=== PATIENT | female | born 1995 | race Caucasian/White ===

== ENCOUNTER 2016-07-13 07:07 | Emergency (ER) | payer BC ==
[2016-07-13 07:22] VITALS: BP 117/76
--- NOTE | 2016-07-13 14:51 | UC ---
Frankie Lema Anna, scribed for Melodie Carter DO on 07/13/16 at 0755 . Complaint Female HPI - HPI Summary HPI Summary: Patient is a 21 y/o female coming to [facility] presenting with dysuria that began four days ago. Per triage notes, the severity of the pain is described as 3/10. Her urine has additionally been malodorous. She has been drinking more water than normal and has noticed an increase in the frequency of urination. She has additionally had back pain and has felt feverish. She has a skin rash that began yesterday and resolved after washing off, which she attributes to an allergic reaction. She denies abd pain, sore throat, eye drainage, SOB, coughing , or MCMAHAN. She was recently taken off Bactrim, which she normally takes for 14 days. Her current symptoms do not feel similar to her previous kidney infections. Her history is significant for bilateral duplex kidneys, reimplantation of ureters, reshaping of ureters, and recurrent urinary infections, which she experiences about once a month. She was recently taking off her pplx abx for a trial. LNMP was 06/14/2016. Patient medications were reviewed this visit. - History Of Current Complaint Stated Complaint: URINARY ISSUE Hx Obtained From: Patient Hx Last Menstrual Period: 06/14/16 ?: No Onset/Duration: Gradual Onset, Lasting Days, Still Present Timing: Lasting Days Severity Initially: Moderate Severity Currently: Moderate Pain Intensity: 3 Pain Scale Used: 0-10 Numeric Character: Dull, Burning Aggravating Factor(s): Urination Alleviating Factor(s): Nothing Associated Signs And Symptoms: Positive: Fever, Back Pain Related Hx: Similar Episode/Dx as: - UTI, 12x/year - Allergies/Home Medications Allergies/Adverse Reactions: Allergies Allergy/AdvReac Type Severity Reaction Status Date / Time gluten Allergy celiac's Uncoded 06/06/15 07:41 PMH/Surg Hx/FS Hx/Imm Hx - Additional Past Medical History Additional PMH: In addition to listed below: recurrent UTIs, panic disorder, Genital herpes complex 1 Respiratory History Of: Reports: Asthma - CHILDHOOD ASTHMA STATES NO PROBLEMS NOW GI/ History Of: Reports: Kidney Stones - HISTORY Psychological History Of: Reports: Anxiety - NO MEDICATION FOR, Depression - NO MEDICATION FOR - Surgical History Surgical History: Yes Surgery Procedure, Year, and Place: URETER REIMPLANTATION- [facility]- 1992. 2006-RESHAPING OF THE URETER OPENING-[facility]. urethral dialation at [facility] [place] - Family History Known Family History: Positive: Other - breast CA, pancreatic CA, colon CA Negative: Cardiac Disease, Hypertension, Diabetes - Social History Alcohol Use: Rare Substance Use Type: None Smoking Status (MU): Never Smoked Tobacco Review of Systems Constitutional: Fever Skin: Rash - resolved Eyes: Negative ENT: Negative Respiratory: Negative Cardiovascular: Negative Gastrointestinal: Negative Genitourinary: Dysuria, Frequency, Other - malodorous urine Motor: Negative Neurovascular: Negative Musculoskeletal: Myalgia - back pain Neurological: Negative Psychological: Negative All Other Systems Reviewed And Are Negative: Yes Physical Exam Triage Information Reviewed: Yes Appearance: Well-Appearing, No Pain Distress, Well-Nourished Vital Signs: Initial Vital Signs Temp 98.6 F 07/13/16 07:16 Pulse 67 07/13/16 07:16 Resp 17 07/13/16 07:16 BP 117/76 07/13/16 07:16 Pulse Ox 100 07/13/16 07:16 Vital Signs Reviewed: Yes Eyes: Positive: Conjunctiva Clear. Negative: Discharge ENT: Positive: Hearing grossly normal. Negative: Muffled/hoarse voice Neck exam: Normal Neck: Positive: Supple Respiratory: Positive: Lungs clear, Normal breath sounds, No respiratory distress, No accessory muscle use Cardiovascular: Positive: RRR, No Murmur Abdomen Description: Positive: Soft, CVA Tenderness (R), Other: - suprapubic tenderness. Negative: Distended, Guarding Bowel Sounds: Positive: Present Musculoskeletal Exam: Normal Neurological: Positive: Alert, Muscle Tone Normal Psychological Exam: Normal Psychological: Positive: Age Appropriate Behavior Skin Exam: Other - warm, dry, normal color Complaint Female Dx - Differential Dx/Diagnosis Differential Diagnosis/HQI/PQRI: Renal Colic, Urinary Tract Infection Provider Diagnoses: URINARY TRACT INFECTION Discharge - Discharge Plan Condition: Stable Disposition: HOME Prescriptions: Phenazopyridine TAB* [Pyridium TAB*] 200 mdi PO TID PRN #6 tab PRN Reason: Pain Sulfamethox/Trimethoprim DS* [Bactrim DS 800/160 TAB*] 1 tab PO BID #28 tab Patient Education Materials: Sulfamethoxazole/Trimethoprim (By mouth), Urinary Tract Infection in Women (ED) Referrals: Haley Estes NP [Primary Care Provider] - 3 Days (FOLLOW UP WITHIN 2 DAYS IF YOUR SYMPTOMS ARE GETTING WORSE. FOLLOW UP SOONER IF YOU ARE DEVELOPING NEW SYMPTOMS SUCH FEVER, CHILLS, CONFUSION,VOMITING OR WORSENING FLANK PAIN. FOLLOW UP IN 3-4 DAYS IF NOT IMPROVING EXPECTED. ) Additional Instructions: ANTIBIOTIC THERAPY: You have been given an antibiotic prescription. It's important that you take all the medication, unless instructed otherwise by your physician. Failure to complete the entire course can result in relapse of your condition. Common side effects of antibiotics include nausea, intestinal cramping, or diarrhea. Women may develop vaginal yeast infections, and babies can get yeast (thrush) in the mouth following the use of antibiotics. Contact your physician if you develop significant side effects from this medication. Allergy to this antibiotic can result in hives, wheezing, faintness, or itching. If symptoms of allergy occur, stop the medication and call the doctor. ANYTIME YOU TAKE AN ANTIBIOTIC, IT IS IMPORTANT TO REPLENISH THE BODY'D SUPPLY OF "GOOD BACTERIA." YOU CAN GET GOOD BACTERIA FROM HIGH QUALITY CULTURED FOODS SUCH LOCAL YOGURT, SOUR KRAUT, PHUC PARAMJIT, NATURALLY FERMENTED PICKLES AND PROBIOTIC DRINKS. YOU CAN ALSO GET GOOD BACTERIA FROM A PROBIOTIC SUPPLEMENT. The documentation as recorded by the Frankie hinkle Anna accurately reflects the service I personally performed and the decisions made by , Melodie Carter DO.
== END 2016-07-13 08:22 | disposition home or self-care (01) ==
LOC: UCEAST 07:07
DX: N39.0 Urinary tract infection, site not specified (principal); Z32.02 Encounter for pregnancy test, result negative; Z87.440 Personal history of urinary (tract) infections; Z87.442 Personal history of urinary calculi; F41.9 Anxiety disorder, unspecified; F32.9 Major depressive disorder, single episode, unspecified
CPT/HCPCS: 81003; 84702; 87077; 87086; 87186; 99212; G0463

== ENCOUNTER 2016-07-27 15:51 | Emergency (ER) | payer BC ==
[2016-07-27 16:38] VITALS: BP 109/70
--- NOTE | 2016-07-27 17:03 | UC ---
Skin Complaint HPI - HPI Summary HPI Summary: Pain, redness in L breast starting 2 evenings ago. No or , denies fever or vomiting. Bound breasts the week before, but not in the days leading up to the redness. No recent injury, piercings, or tattoos. - History of Current Complaint Chief Complaint: UCSkin Time Seen by Provider: 07/27/16 16:45 Stated Complaint: SKIN COMPLAINT Hx Obtained From: Patient Hx Last Menstrual Period: 07/18/16 ?: No Onset/Duration: Gradual Onset, Lasting Days Timing: Constant Onset Severity: Mild Current Severity: Moderate Location: Discrete Character: Redness, Painful Aggravating: Clothing, Touch Alleviating: Nothing Associated Signs & Symptoms: Positive: Chest Pain - (L breast), Tenderness - Allergy/Home Medications Allergies/Adverse Reactions: Allergies Allergy/AdvReac Type Severity Reaction Status Date / Time Sulfa Antibiotics Allergy Severe GI Upset Verified 07/27/16 16:38 gluten Allergy celiac's Uncoded 07/27/16 16:38 Review of Systems Constitutional: Negative Skin: Other - L breast redness Eyes: Negative ENT: Negative Respiratory: Negative Cardiovascular: Negative Gastrointestinal: Negative Genitourinary: Negative Motor: Negative Neurovascular: Negative Musculoskeletal: Negative Neurological: Negative Psychological: Negative All Other Systems Reviewed And Are Negative: Yes PMH/Surg Hx/FS Hx/Imm Hx - Surgical History Surgical History: Yes Surgery Procedure, Year, and Place: URETER REIMPLANTATION- [facility]- 1992. 2005-RESHAPING OF THE URETER OPENING-[facility]. urethral dialation at [facility] [place] - Family History Known Family History: Positive: Other - breast CA, pancreatic CA, colon CA Negative: Cardiac Disease, Hypertension, Diabetes - Social History Alcohol Use: None Substance Use Type: None Smoking Status (MU): Never Smoked Tobacco Physical Exam Triage Information Reviewed: Yes Appearance: Well-Appearing, No Pain Distress, Well-Nourished Vital Signs: Initial Vital Signs Temp 98.8 F 07/27/16 16:35 Pulse 98 07/27/16 16:35 Resp 16 07/27/16 16:35 BP 109/70 07/27/16 16:35 Pulse Ox 100 07/27/16 16:35 Vital Signs Reviewed: Yes Eye Exam: Normal Eyes: Positive: Conjunctiva Clear ENT Exam: Normal ENT: Positive: Normal ENT inspection, Hearing grossly normal, Pharynx normal, TMs normal Dental Exam: Normal Neck exam: Normal Respiratory Exam: Normal Respiratory: Positive: Chest non-tender, Lungs clear, Normal breath sounds, No respiratory distress, No accessory muscle use Cardiovascular Exam: Normal Cardiovascular: Positive: RRR, No Murmur Musculoskeletal Exam: Normal Neurological Exam: Normal Neurological: Positive: Alert Psychological Exam: Normal Skin Exam: Other - erythema central on L breast, no abscess formation or nipple drainage Course/Dx - Diagnoses Provider Diagnoses: Nonlactational L mastitis Discharge - Discharge Plan Condition: Stable Disposition: HOME Prescriptions: Cephalexin CAP* [Keflex CAP*] 500 mg PO QID #28 cap Patient Education Materials: Mastitis (ED) Referrals: Haley Estes NP [Primary Care Provider] - Additional Instructions: If you don't start to have clear and steady improvement within 48 hours, please see your primary care provider for a recheck. If you are markedly worsening or develop fever, please go to the emergency department or see your primary care office.
== END 2016-07-27 17:02 | disposition home or self-care (01) ==
LOC: UCEAST 15:51
DX: N61.0 Mastitis without abscess (principal); Z88.2 Allergy status to sulfonamides
CPT/HCPCS: 99212; G0463

== ENCOUNTER 2016-08-14 09:05 | Emergency (ER) | payer BC ==
[2016-08-14 11:19] VITALS: BP 108/68
--- NOTE | 2016-08-14 12:01 | RAD ---
CLINICAL HISTORY: Left breast redness and swelling , nipple inversion COMPARISON: None TECHNIQUE: Multiple radial and antiradial ultrasound images were obtained of the left breast using grayscale and color Doppler imaging. FINDINGS: BACKGROUND OF BREAST ECHOTEXTURE: Homogeneous-glandular MASSES: There are no suspicious nodules or masses. ARCHITECTURE: There is no architectural distortion. CALCIFICATIONS: There is no shadowing. SPECIAL CASES: None. OTHER FINDINGS: There is a benign-appearing lymph node in the left axilla. There is no lymphadenopathy by size criteria ASSESSMENT: NO LOCULATED FLUID COLLECTION TO SUGGEST ABSCESS. NO SPECIFIC SONOGRAPHIC EVIDENCE OF MALIGNANCY. RECOMMENDATION: RECOMMEND ROUTINE YEARLY SCREENING MAMMOGRAPHY AT THE APPROPRIATE AGE ACCORDING TO ACR GUIDELINES. A NEGATIVE REPORT SHOULD NOT PRECLUDE OR DELAY THE EVALUATION OF A CLINICALLY SUSPICIOUS ABNORMALITY ACR BIRADS Category 2: Benign
--- NOTE | 2016-08-14 14:12 | UC ---
Sylvester Lema Auryana, scribed for Melodie Carter DO on 08/14/16 at 1019 . Breast Complaint - HPI Summary HPI Summary: 21 year old female presents with left breast erthyema and swelling starting this morning. She denies any fever, chills, sweats, chest pain, cough, SOB, nausea, vomiting, or any headaches. She denies any pain or any discharge. She was seen here 2 weeks ago with previous diagnosis of mastitis - ABX given and saw mild improvement at day 4 with resolution after full ABX course. Reports using warm compresses with previous episode. PMHx is significant for recurrent U.T.I.s. SHx is not significant for tobacco use. - History of Current Complaint Hx Obtained From: Patient Breast Chief Complaint: Dimpling - due to swelling, Inflammation, Other: - erythema Onset/Duration: Started Days Ago - this morning, Still Present Timing: Constant Breast Pain Aggravating Factors: Nothing - no pain Breast Pain Alleviating Factors: Nothing - no pain Breast Associated Signs/Symptoms: Redness Breast Related History: Similar Episode as: - SEE HPI - Allergy/Home Medications Allergies/Adverse Reactions: Allergies Allergy/AdvReac Type Severity Reaction Status Date / Time Sulfa Antibiotics Allergy Severe GI Upset Verified 08/14/16 09:15 gluten Allergy celiac's Uncoded 08/14/16 09:15 PMH/Surg Hx/FS Hx/Imm Hx - Additional Past Medical History Additional PMH: h/o recurrent uti d/t anatomical anomaly - Surgical History Surgical History: Yes Surgery Procedure, Year, and Place: URETER REIMPLANTATION- [facility]- 1992. 2005-RESHAPING OF THE URETER OPENING-[facility]. [place] dial[place] [facility] [place] - Family History Known Family History: Positive: Other - breast CA, pancreatic CA, colon CA Negative: Cardiac Disease, Hypertension, Diabetes - Social History Lives: With Family Alcohol Use: None Substance Use Type: None Smoking Status (MU): Never Smoked Tobacco Review of Systems Constitutional: Negative Skin: Other - left breast swelling and erythema Eyes: Negative ENT: Negative Respiratory: Negative Cardiovascular: Negative Gastrointestinal: Negative Genitourinary: Negative Motor: Negative Neurovascular: Negative Musculoskeletal: Negative Neurological: Negative Psychological: Negative All Other Systems Reviewed And Are Negative: Yes Physical Exam Triage Information Reviewed: Yes Appearance: Well-Appearing, No Pain Distress, Well-Nourished Vital Signs: Initial Vital Signs Temp 99.9 F 08/14/16 09:15 Pulse 77 08/14/16 09:15 Resp 16 08/14/16 09:15 BP 98/66 08/14/16 09:15 Pulse Ox 100 08/14/16 09:15 Vital Signs Reviewed: Yes Eyes: Positive: Conjunctiva Clear. Negative: Discharge ENT: Positive: Hearing grossly normal. Negative: Muffled/hoarse voice Neck exam: Normal Neck: Positive: Supple Respiratory: Positive: Lungs clear, Normal breath sounds, No respiratory distress, No accessory muscle use Cardiovascular: Positive: RRR, No Murmur Musculoskeletal Exam: Normal Neurological: Positive: Alert, Muscle Tone Normal Psychological Exam: Normal Psychological: Positive: Age Appropriate Behavior Skin Exam: Normal, Other - warm, dry, color normal Skin: Positive: Other - 13 cm x 15 cm erythematous, and mildly indurated area over the left breast Some dimpling of the nipple. Breast Pain Course/Dx - Course Course Of Treatment: ASSESSMENT: NO LOCULATED FLUID COLLECTION TO SUGGEST ABSCESS. NO SPECIFIC SONOGRAPHIC. EVIDENCE OF MALIGNANCY. - Differential Diagnoses Differential Diagnosis/HQI/PQRI: Breast Abscess, Mastitis, Other: - cellulitis - Diagnoses Provider Diagnoses: Mastitis Discharge - Discharge Plan Condition: Stable Disposition: HOME Prescriptions: Amoxicillin/Clavulanate TAB* [Augmentin TAB 875*] 875 mg PO BID #20 tab Patient Education Materials: Mastitis (ED), Amoxicillin/Clavulanate Potassium ( By mouth), Probiotic (By mouth) Referrals: Randi Naidu MD [Medical Doctor] - 1 Day (PLEASE CALL FOR AN APPOINTMENT ) Additional Instructions: ANYTIME YOU TAKE AN ANTIBIOTIC, IT IS IMPORTANT TO REPLENISH THE BODY'D SUPPLY OF "GOOD BACTERIA." YOU CAN GET GOOD BACTERIA FROM HIGH QUALITY CULTURED FOODS SUCH LOCAL YOGURT, SOUR KRAUT, PHCU PARAMJIT, NATURALLY FERMENTED PICKLES AND PROBIOTIC DRINKS. YOU CAN ALSO GET GOOD BACTERIA FROM A PROBIOTIC SUPPLEMENT. YOU WOULD LIKELY BENEFIT FROM OSTEOPATHIC TREATMENT. WE RECOMMEND THAT YOU FIND AN OSTEOPATHIC PHYSICIAN IN YOUR AREA WHO FOCUSES EXCLUSIVELY ON OSTEOPATHIC MANIPULATIVE MEDICINE WITH EXPERTISE IN MYOFACIAL, LYMPHATIC, VISCERAL AND INTEROSSEOUS WORK. IF NOT OSTEOPATHY, YOU COULD SEEK HELP FROM AN ACCUPUNCTURITST OR ANY OTHER TYPE OF LINE MAINTAINER SECTION WHO DOES LYMPHATIC DRAINAGE. The documentation as recorded by the Sylvester hinkle Auryana accurately reflects the service I personally performed and the decisions made by me, Melodie Carter DO.
== END 2016-08-14 12:08 | disposition home or self-care (01) ==
LOC: UCEAST 09:05
DX: N61.0 Mastitis without abscess (principal); Z88.2 Allergy status to sulfonamides
CPT/HCPCS: 84702; 99212; G0463

== ENCOUNTER 2016-08-31 15:24 | Emergency (ER) | payer BC ==
--- NOTE | 2016-08-31 18:14 | UC ---
Urmila Lema Alfonso, scribed for Waqar Evans MD on 08/31/16 at 1655 . Complaint Female HPI - HPI Summary HPI Summary: This patient is a 21 year old F presenting to [facility] with a chief complaint of UTI symptoms since yesterday. Pt rates the burning pain 5/10 in severity. Symptoms aggravated and alleviated by nothing. Pt reports dysuria, increased urgency, increased frequency, nausea, and right flank pain. She denies dyspnea. Pt reports a recent fall. PMHx of recurrent UTIs. Patient medications reviewed this visit. - History Of Current Complaint Chief Complaint: UCGU Stated Complaint: POSS UTI Time Seen by Provider: 08/31/16 16:37 Hx Obtained From: Patient Hx Last Menstrual Period: 08/21/16 Onset/Duration: Sudden Onset, Lasting Days - Since yesterday, Still Present Timing: Constant Severity Initially: Moderate Severity Currently: Moderate Pain Intensity: 7 Pain Scale Used: 0-10 Numeric Character: Burning Aggravating Factor(s): Nothing Alleviating Factor(s): Nothing Associated Signs And Symptoms: Positive: Nausea - Allergies/Home Medications Allergies/Adverse Reactions: Allergies Allergy/AdvReac Type Severity Reaction Status Date / Time Sulfa Antibiotics Allergy Severe GI Upset Verified 08/14/16 09:15 gluten Allergy celiac's Uncoded 08/14/16 09:15 Home Medications: Home Medications Acyclovir* [Zovirax CAP*] 1,000 mg PO PRN 08/31/16 [History] PMH/Surg Hx/FS Hx/Imm Hx - Surgical History Surgical History: Yes Surgery Procedure, Year, and Place: URETER REIMPLANTATION- [facility]- 1992. 2005-RESHAPING OF THE URETER OPENING-[facility]. urethral dialation at [facility] [place] - Family History Known Family History: Positive: Other - breast CA, pancreatic CA, colon CA Negative: Cardiac Disease, Hypertension, Diabetes - Social History Alcohol Use: None Substance Use Type: None Smoking Status (MU): Never Smoked Tobacco Review of Systems Respiratory: Other - Negative dyspnea Gastrointestinal: Nausea, Other - Positive right flank pain. Genitourinary: Other - Positive "UTI symptoms," dysuria, increased urgency, increased frequency. All Other Systems Reviewed And Are Negative: Yes Physical Exam Triage Information Reviewed: Yes Appearance: Well-Appearing, No Pain Distress Vital Signs: Initial Vital Signs Temp 97.8 F 08/31/16 15:47 Pulse 87 08/31/16 15:47 Resp 18 08/31/16 15:47 Pulse Ox 100 08/31/16 15:47 Vital Signs Reviewed: Yes Eyes: Positive: Other: - EOMI and SHAREE ENT: Positive: Normal ENT inspection Neck: Positive: Supple, Nontender Respiratory: Positive: Chest non-tender, Lungs clear, Normal breath sounds Cardiovascular: Positive: RRR Abdomen Description: Positive: Soft, Other: - Mild right flank and suprapubic tenderness. Bowel Sounds: Positive: Present Musculoskeletal: Positive: Strength Intact, ROM Intact Neurological: Positive: Alert Psychological: Positive: Age Appropriate Behavior Skin Exam: Normal Complaint Female Dx - Course Course Of Treatment: PATIENT SEES AN UROLOGIST IN [place]. SHE ALREADY HAS ANTIBIOTICS AND ZOFRAN AT HOME. URINE CULTURE SENT. - Differential Dx/Diagnosis Provider Diagnoses: UTI Discharge - Discharge Plan Condition: Stable Disposition: HOME Patient Education Materials: Urinary Tract Infection in Women (ED) Referrals: Haley Estes NP [Primary Care Provider] - Additional Instructions: FOLLOW UP WITH YOUR DOCTOR. YOUR URINE CULTURE RESULTS ARE PENDING. GET RECHECKED FOR ANY WORSENING OF YOUR CONDITION OR QUESTIONS OR CONCERNS. The documentation as recorded by the Urmila hinkle Alfonso accurately reflects the service I personally performed and the decisions made by me, Waqar Evans MD.
[2016-09-01 12:28] LABS: Urine Bacteria Absent (Absent); Urine Bilirubin Negative (Negative); Urine Glucose Negative (Negative); Urine Nitrite Negative (Negative)
== END 2016-08-31 17:02 | disposition home or self-care (01) ==
LOC: UCEAST 15:24
DX: N39.0 Urinary tract infection, site not specified (principal)
CPT/HCPCS: 81003; 81015; 84702; 87077; 87086; 87186; 99211; G0463

== ENCOUNTER 2016-10-13 17:44 | Emergency (ER) | payer BC ==
[2016-10-13 17:58] VITALS: BP 104/69
--- NOTE | 2016-10-13 18:09 | UC ---
Complaint Female HPI - HPI Summary HPI Summary: Pt presents to urgent care with request for urine culture. 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 Rodríguez) in [place]. Pt frequently gets UTIs and has a standing prescription for Macrobid for when sx develop. Pt has previously be instructed not to start abx until gets culture. Pt states has progressive sx x 2 days. States started pyridium. 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 Pt reports tactile temp. No fever, chills, rash. mild right low back pain. no hematuria. + frequency. + dysuria. No nausea, vomiting. + staying hydrated. Pt has not called business project analyst. Pt has taken APAP Pt's medications reviewed this visit Pt with bottle of Macrobid with her - History Of Current Complaint Chief Complaint: UCGU Stated Complaint: BURNING URINATION Time Seen by Provider: 10/13/16 18:06 Hx Obtained From: Patient Hx Last Menstrual Period: 10/13/16 ?: No Onset/Duration: Gradual Onset Timing: Constant Severity Initially: Mild Severity Currently: Moderate Pain Intensity: 6 Character: Burning Aggravating Factor(s): Urination Alleviating Factor(s): Meds - pyridium, APAP little improvement Associated Signs And Symptoms: Positive: Fever - tactile, Back Pain - low back - Allergies/Home Medications Allergies/Adverse Reactions: Allergies Allergy/AdvReac Type Severity Reaction Status Date / Time Sulfa Antibiotics Allergy Severe GI Upset Verified 08/14/16 09:15 gluten Allergy celiac's Uncoded 08/14/16 09:15 PMH/Surg Hx/FS Hx/Imm Hx Previously Healthy: Yes GI/ History: Other Other GI/ History: redundant kidney, frequent UTI - Surgical History Surgical History: Yes Surgery Procedure, Year, and Place: URETER REIMPLANTATION- [facility]- 1992. 2005-RESHAPING OF THE URETER OPENING-[facility]. 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 Alcohol Use: None Substance Use Type: None Smoking Status (MU): Never Smoked Tobacco Review of Systems Constitutional: Fever - tactile Skin: Negative Eyes: Negative ENT: Negative Respiratory: Negative Cardiovascular: Negative Gastrointestinal: Negative Genitourinary: Dysuria, Frequency, Urgency Motor: Negative Neurovascular: Negative Musculoskeletal: Negative Neurological: Negative Psychological: Negative All Other Systems Reviewed And Are Negative: Yes Physical Exam Triage Information Reviewed: Yes Appearance: Well-Appearing Vital Signs: Initial Vital Signs Temp 97.8 F 10/13/16 17:53 Pulse 77 10/13/16 17:53 Resp 18 10/13/16 17:53 BP 104/69 10/13/16 17:53 Pulse Ox 100 10/13/16 17:53 Vital Signs Reviewed: Yes Eye Exam: Normal Eyes: Positive: Conjunctiva Clear ENT: Positive: Hearing grossly normal Neck: Positive: Supple, Nontender Respiratory: Positive: Normal breath sounds, No respiratory distress, No accessory muscle use Cardiovascular Exam: Normal Cardiovascular: Positive: RRR, No Murmur Abdomen Description: Positive: Soft. Negative: Nontender - mild suprapubic no guarding no CVA b/l, CVA Tenderness (R), CVA Tenderness (L) Bowel Sounds: Positive: Present Musculoskeletal Exam: Normal Neurological Exam: Normal Neurological: Positive: Alert Psychological Exam: Normal Psychological: Positive: Normal Response To Family Skin Exam: Normal Complaint Female Dx - Course Course Of Treatment: Pt presents with urinary frequency, urgency increasing x 2 days. Pt with recurrent UTI. Pt started pyridium. today started Macrobid. Pt here for urine culture per business project analyst in [place]. Pt declined work note. APAP. hydrated. will call nephrology tomorrow. return precautions discussed - Differential Dx/Diagnosis Provider Diagnoses: UTI Discharge - Discharge Plan Condition: Stable Disposition: HOME Patient Education Materials: Urinary Tract Infection in Women (ED) Referrals: Haley Estes NP [Primary Care Provider] - Additional Instructions: - Stay well hydrated. Drink plenty of non-caffinated, non-carbonated beverages - Take pyridium, Macrobid as prescribed by your kidney specialist - Okay to take Tylenol every 6 Horus as needed for pain - Contact your renal specialist tomorrow to schedule a follow-up appointment and discuss today's visit - your urine has been cultured, of you need a different antibiotic you will receive a call from our patient care team
== END 2016-10-13 18:27 | disposition home or self-care (01) ==
LOC: UCEAST 17:44
DX: N39.0 Urinary tract infection, site not specified (principal); Z32.02 Encounter for pregnancy test, result negative; Z87.440 Personal history of urinary (tract) infections; Z88.2 Allergy status to sulfonamides
CPT/HCPCS: 81003; 84702; 87077; 87086; 87186; 99211; G0463

== ENCOUNTER 2017-01-06 18:07 | Emergency (ER) | payer BC ==
[2017-01-06 20:00] VITALS: BP 116/70
[2017-01-06] MEDS ORDERED: Ciprofloxacin TAB* 500 MG PO ONE (20:18)
--- NOTE | 2017-01-06 20:25 | UC ---
Complaint Female HPI - HPI Summary HPI Summary: Pt has long hx of recurrent UTIs, recent ones dxed in August and Sep of this year. Was recently diagnosed with urinary reflux by a urologist. Has had urinary pain, frequency, and bladder pressure starting about 3 days ago. Denies fever and back pain, but does have nausea. - History Of Current Complaint Hx Obtained From: Patient Hx Last Menstrual Period: December 27 ?: No Onset/Duration: Gradual Onset, Lasting Days Timing: Constant Severity Initially: Mild Severity Currently: Moderate Character: Burning Aggravating Factor(s): Urination Associated Signs And Symptoms: Negative: Fever, Back Pain, Vaginal Bleeding/ Discharge <Hannah Galeano - Last Filed: 01/06/17 20:20> <Esmer Bray - Last Filed: 01/07/17 10:11> - History Of Current Complaint Chief Complaint: UCGU Stated Complaint: POSS UTI Time Seen by Provider: 01/06/17 19:47 - Allergies/Home Medications Allergies/Adverse Reactions: Allergies Allergy/AdvReac Type Severity Reaction Status Date / Time Sulfa Antibiotics Allergy Severe GI Upset Verified 01/06/17 20:00 gluten Allergy celiac's Uncoded 01/06/17 20:00 Home Medications: Home Medications Methenamine Hippurate [Hiprex] 1 gm PO DAILY 01/06/17 [History Confirmed ] PMH/Surg Hx/FS Hx/Imm Hx Previously Healthy: Yes - Surgical History Surgical History: Yes Surgery Procedure, Year, and Place: URETER REIMPLANTATION- [facility]- 1992. 2005-RESHAPING OF THE URETER OPENING-[facility]. urethral dialation at [facility] – [place], [place] - Family History Known Family History: Positive: Other - breast CA, pancreatic CA, colon CA Negative: Cardiac Disease, Hypertension, Diabetes - Social History Occupation: Employed Full-time Alcohol Use: None Substance Use Type: None Smoking Status (MU): Never Smoked Tobacco <Hannah Galeano - Last Filed: 01/06/17 20:20> Review of Systems Constitutional: Negative Skin: Negative Eyes: Negative ENT: Negative Respiratory: Negative Cardiovascular: Negative Gastrointestinal: Negative Genitourinary: Dysuria, Frequency, Urgency Motor: Negative Neurovascular: Negative Musculoskeletal: Negative Neurological: Negative Psychological: Negative Is Patient Immunocompromised?: No All Other Systems Reviewed And Are Negative: Yes <Hannah Galeano - Last Filed: 01/06/17 20:20> Physical Exam Triage Information Reviewed: Yes Appearance: Well-Appearing, No Pain Distress, Well-Nourished Vital Signs: Initial Vital Signs Temp 99.4 F 01/06/17 19:57 Pulse 82 01/06/17 19:57 Resp 18 01/06/17 19:57 BP 116/70 01/06/17 19:57 Pulse Ox 100 01/06/17 19:57 Vital Signs Reviewed: Yes Eye Exam: Normal Eyes: Positive: Conjunctiva Clear ENT Exam: Normal ENT: Positive: Normal ENT inspection, Hearing grossly normal, Pharynx normal, TMs normal Dental Exam: Normal Neck exam: Normal Neck: Positive: Supple, Nontender, No Lymphadenopathy Respiratory Exam: Normal Respiratory: Positive: Chest non-tender, Lungs clear, Normal breath sounds, No respiratory distress, No accessory muscle use Cardiovascular Exam: Normal Cardiovascular: Positive: RRR Abdomen Description: Positive: CVA Tenderness (R), CVA Tenderness (L) - L>R Musculoskeletal Exam: Normal Neurological Exam: Normal Neurological: Positive: Alert Psychological Exam: Normal Skin Exam: Normal <Hannah Galeano - Last Filed: 01/06/17 20:20> Vital Signs: Initial Vital Signs Temp 99.4 F 01/06/17 19:57 Pulse 82 01/06/17 19:57 Resp 18 01/06/17 19:57 BP 116/70 01/06/17 19:57 Pulse Ox 100 01/06/17 19:57 <Esmer Bray - Last Filed: 01/07/17 10:11> Complaint Female Dx - Differential Dx/Diagnosis Provider Diagnoses: UTI <Hannah Galeano - Last Filed: 01/06/17 20:20> Discharge <Hannah Galeano - Last Filed: 01/06/17 20:20> <Esmer Bray - Last Filed: 01/07/17 10:11> - Discharge Plan Condition: Stable Disposition: HOME Prescriptions: Ciprofloxacin TAB* [Cipro 500 MG TAB*] 500 mg PO BID #10 tab Patient Education Materials: Urinary Tract Infection in Women (ED) Referrals: Haley Estes NP [Primary Care Provider] - Additional Instructions: Follow up with your urologist as planned. If you are not completely symptom- free by the time you finish your antibiotics, get seen again. Attestation Statement User Type: Provider - I was available for consult. This patient was seen by the GISELA. The patient was not presented to, seen by, or examined by me. -Ely <Esmer Bray - Last Filed: 01/07/17 10:11>
== END 2017-01-06 20:27 | disposition home or self-care (01) ==
LOC: UCEAST 18:07
DX: N39.0 Urinary tract infection, site not specified (principal); Z87.440 Personal history of urinary (tract) infections
CPT/HCPCS: 81003; 81025; 87086; 99212; A9270-GY; G0463

== ENCOUNTER 2017-10-11 08:09 | Emergency (ER) | payer BC ==
[2017-10-11 08:18] VITALS: BP 111/74
--- NOTE | 2017-10-11 08:19 | UC ---
Complaint Female HPI - HPI Summary HPI Summary: 22 yo female presents with urinary burning and frequency since yesterday morning that got progressively worse as the day continued. This morning does endorse some left flank pain. She tells me that she has an extensive history of UTIs and is on chronic macrodantin for this and is followed by Urology. Also a history of multiple ureter surgeries. Currently denies fever, chills, abdominal pain, n/v/d/c, or hematuria. No hx of kidney stone. - History Of Current Complaint Chief Complaint: UCGU Stated Complaint: URINARY COMPLAINT Time Seen by Provider: 10/11/17 08:13 Hx Obtained From: Patient Hx Last Menstrual Period: December 27 Onset/Duration: Sudden Onset Timing: Constant Severity Initially: Mild Severity Currently: Mild Pain Intensity: 3 Pain Scale Used: 0-10 Numeric - Allergies/Home Medications Allergies/Adverse Reactions: Allergies Allergy/AdvReac Type Severity Reaction Status Date / Time Sulfa (Sulfonamide Allergy GI Upset Verified 10/11/17 08:20 Antibiotics) gluten Allergy celiac's Uncoded 10/11/17 08:20 methanamine Allergy See Comment Uncoded 10/11/17 08:20 Home Medications: Home Medications Estradiol/Levonorgestrel [Climara Pro Patch] 1 each TD 10/11/17 [History] PMH/Surg Hx/FS Hx/Imm Hx - Additional Past Medical History Additional PMH: Chronic UTIs - Surgical History Surgical History: Yes Surgery Procedure, Year, and Place: URETER REIMPLANTATION- [facility]- 1992. 2005-RESHAPING OF THE URETER OPENING-[facility]. [place] [facility] [place] - Family History Known Family History: Positive: Other - breast CA, pancreatic CA, colon CA Negative: Cardiac Disease, Hypertension, Diabetes - Social History Occupation: Employed Full-time Lives: With Family Alcohol Use: None Substance Use Type: None Smoking Status (MU): Never Smoked Tobacco Review of Systems Constitutional: Negative Skin: Negative Respiratory: Negative Cardiovascular: Negative Gastrointestinal: Negative Genitourinary: Dysuria, Urgency Neurovascular: Negative Neurological: Negative Psychological: Negative All Other Systems Reviewed And Are Negative: Yes Physical Exam - Summary Physical Exam Summary: GENERAL: NAD. WDWN. No pain distress. SKIN: No rashes, sores, lesions, or open wounds. NECK: Supple. Nontender. No lymphadenopathy. CHEST: CTAB. No r/r/w. No accessory muscle use. Breathing comfortably and in no distress. CV: RRR. Without m/r/g. Pulses intact. Cap refill <2seconds ABDOMEN: Mild left CVA tenderness. Soft. NTTP. No distention or guarding. Bowel sounds present NEURO: Alert. CN II-XII grossly intact. PSYCH: Age appropriate behavior. Triage Information Reviewed: Yes Vital Signs: Vital Signs: Temp Pulse Resp BP Pulse Ox 97.7 F 83 18 111/74 100 10/11/17 08:15 10/11/17 08:15 10/11/17 08:15 10/11/17 08:15 10/11/17 08:15 Vital Signs Reviewed: Yes Complaint Female Dx - Course Course Of Treatment: UA unreliable as pt took AZO this morning for her symptoms. Will treat symptomatically and send urine for culture. - Differential Dx/Diagnosis Provider Diagnoses: UTI Discharge - Sign-Out/Discharge Documenting (check all that apply): Patient Departure All imaging exams completed and their final reports reviewed: No Studies - Discharge Plan Condition: Stable Disposition: HOME Prescriptions: Ciprofloxacin TAB* [Cipro 500 MG TAB*] 500 mg PO BID #14 tab Patient Education Materials: Urinary Tract Infection in Women (ED) Referrals: Yury Knight MD [Primary Care Provider] - Additional Instructions: If you develop a fever, shortness of breath, chest pain, new or worsening symptoms - please call your PCP or go to the ED. - Billing Disposition and Condition Condition: STABLE Disposition: Home
== END 2017-10-11 08:40 | disposition home or self-care (01) ==
LOC: UCEAST 08:09
DX: N39.0 Urinary tract infection, site not specified (principal); Z88.8 Allergy status to other drugs, medicaments and biological substances; Z88.2 Allergy status to sulfonamides; Z91.09 Other allergy status, other than to drugs and biological substances
CPT/HCPCS: 87077; 87086; 87186; 99212; G0463

== ENCOUNTER 2017-11-13 13:06 | Emergency (ER) | payer BC ==
[2017-11-13 13:39] VITALS: BP 96/60
--- NOTE | 2017-11-13 15:00 | UC ---
Complaint Female HPI - HPI Summary HPI Summary: 22-year-old female presents with onset of dysuria, frequency, urgency this morning around 2 AM. Associated with some nausea and chills. 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 Denies fever, back or flank pain, abdominal pain, or vomiting. - History Of Current Complaint Chief Complaint: UCGU Stated Complaint: BURNING URINATION Time Seen by Provider: 11/13/17 14:57 Hx Obtained From: Patient Hx Last Menstrual Period: 10/18/17 ?: No Onset/Duration: Sudden Onset, Lasting Hours Timing: Constant Severity Initially: Mild Severity Currently: Mild Pain Intensity: 4 Character: Burning Aggravating Factor(s): Urination Associated Signs And Symptoms: Positive: Nausea. Negative: Fever, Back Pain, Vaginal Bleeding/Discharge, Vomiting(# Of Episodes =), Genital Swelling, Genital Blisters - Allergies/Home Medications Allergies/Adverse Reactions: Allergies Allergy/AdvReac Type Severity Reaction Status Date / Time Sulfa (Sulfonamide Allergy GI Upset Verified 11/13/17 13:39 Antibiotics) gluten Allergy celiac's Uncoded 11/13/17 13:39 methanamine Allergy See Comment Uncoded 11/13/17 13:39 PMH/Surg Hx/FS Hx/Imm Hx Previously Healthy: Yes GI/ History: Renal Disease - Surgical History Surgical History: Yes Surgery Procedure, Year, and Place: URETER REIMPLANTATION- [facility]- 1992. 2005-RESHAPING OF THE URETER OPENING-[facility]. urethral dialation at [facility] – [place] - Family History Known Family History: Positive: Other - breast CA, pancreatic CA, colon CA Negative: Cardiac Disease, Hypertension, Diabetes - Social History Lives: With Family Alcohol Use: None Substance Use Type: None Smoking Status (MU): Never Smoked Tobacco Review of Systems Constitutional: Chills Skin: Negative Respiratory: Negative Cardiovascular: Negative Gastrointestinal: Nausea Genitourinary: Dysuria, Hematuria, Frequency, Urgency Is Patient Immunocompromised?: No All Other Systems Reviewed And Are Negative: Yes Physical Exam Triage Information Reviewed: Yes Appearance: Well-Appearing, No Pain Distress, Well-Nourished Vital Signs: Initial Vital Signs Temp 98.5 F 11/13/17 13:35 Pulse 85 11/13/17 13:35 Resp 16 11/13/17 13:35 BP 96/60 09/28/18 13:35 Pulse Ox 100 11/13/17 13:35 Vital Signs Reviewed: Yes Respiratory: Positive: Lungs clear, Normal breath sounds, No respiratory distress Cardiovascular: Positive: No Murmur, Pulses Normal Abdomen Description: Positive: Nontender, No Organomegaly, Soft. Negative: CVA Tenderness (R), CVA Tenderness (L), Distended, Guarding Bowel Sounds: Positive: Present Neurological: Positive: Alert Skin Exam: Normal Diagnostics - Laboratory Diagnostic Studies Completed/Ordered: UA 1+ protein, trace glucose, trace ketones, trace blood, positive nitrites, and 1+ leukocyte esterase. Complaint Female Dx - Course Course Of Treatment: 22-year-old female with history of congenital renal disorder requiring reconstructive surgery, ureteral reflux, and frequent UTIs presents with onset of dysuria, frequency, urgency, and nausea at 2 AM this morning. Urinalysis suggestive of a urinary tract infection. A urine culture was sent. With her history have elected to treat with ciprofloxacin 500 mg twice a day for 5 days. She was also given a 2 day supply of Pyridium to use for discomfort. She is to follow-up with her primary care provider if no improvement in symptoms within 3 days. - Differential Dx/Diagnosis Provider Diagnoses: acute urinary cystitis with hematuria Discharge - Sign-Out/Discharge Documenting (check all that apply): Patient Departure All imaging exams completed and their final reports reviewed: No Studies - Discharge Plan Condition: Stable Disposition: HOME Prescriptions: Ciprofloxacin TAB* [Cipro 500 MG TAB*] 500 mg PO BID #10 tab Phenazopyridine TAB* [Pyridium 100 mg TAB*] 100 mg PO TID #6 tab Patient Education Materials: Urinary Tract Infection in Women (ED) Referrals: Yury Knight MD [Primary Care Provider] - 3 Days (If no improvement.) Additional Instructions: The urine test performed in the clinic today was suggestive of a urinary tract infection. We will start you on an antibiotic for the infection and send the urine for culture to make sure that the bacteria causing the infection is sensitive to the antibiotic prescribed. Start ciprofloxacin 1 tab twice a day for 5 days. Take Pyridium 1 tab every 8 hours for next 2 days to help with discomfort. Drink plenty of fluids. Follow up with your primary care provider in 3 days if no improvement in symptoms. Seek immediate medical attention in the emergency room if you develop fever greater than 100.5 F, have severe abdominal pain, persistent vomiting, or any worsening of symptoms. - Billing Disposition and Condition Condition: STABLE Disposition: Home
--- NOTE | 2017-11-14 15:08 | UC ---
- Progress Note Progress Note: Urine culture grew out 75-100,000 CFU/ML. She was placed on 5 day course of ciprofloxacin which should cover for this however there is some known resistance to fluoroquinolone therefore she should be contacted to make sure symptoms are improving. If no improvement, may need to switch her antibiotic otherwise continue with treatment as discussed. Discharge - Sign-Out/Discharge Documenting (check all that apply): Post-Discharge Follow Up All imaging exams completed and their final reports reviewed: No Studies - Discharge Plan Condition: Stable Disposition: HOME Prescriptions: Ciprofloxacin TAB* [Cipro 500 MG TAB*] 500 mg PO BID #10 tab Phenazopyridine TAB* [Pyridium 100 mg TAB*] 100 mg PO TID #6 tab Patient Education Materials: Urinary Tract Infection in Women (ED) Referrals: Yury Knight MD [Primary Care Provider] - 3 Days (If no improvement.) Additional Instructions: The urine test performed in the clinic today was suggestive of a urinary tract infection. We will start you on an antibiotic for the infection and send the urine for culture to make sure that the bacteria causing the infection is sensitive to the antibiotic prescribed. Start ciprofloxacin 1 tab twice a day for 5 days. Take Pyridium 1 tab every 8 hours for next 2 days to help with discomfort. Drink plenty of fluids. Follow up with your primary care provider in 3 days if no improvement in symptoms. Seek immediate medical attention in the emergency room if you develop fever greater than 100.5 F, have severe abdominal pain, persistent vomiting, or any worsening of symptoms. - Billing Disposition and Condition Condition: STABLE Disposition: Home
--- NOTE | 2017-11-15 09:00 | UC ---
- Progress Note Progress Note: Urine culture shows Strep Group B , patient was treated with cipro, please call to assess clinical improvement with antibiotic. Discharge - Sign-Out/Discharge Documenting (check all that apply): Post-Discharge Follow Up All imaging exams completed and their final reports reviewed: No Studies - Discharge Plan Condition: Stable Disposition: HOME Prescriptions: Ciprofloxacin TAB* [Cipro 500 MG TAB*] 500 mg PO BID #10 tab Phenazopyridine TAB* [Pyridium 100 mg TAB*] 100 mg PO TID #6 tab Patient Education Materials: Urinary Tract Infection in Women (ED) Referrals: Yury Knight MD [Primary Care Provider] - 3 Days (If no improvement.) Additional Instructions: The urine test performed in the clinic today was suggestive of a urinary tract infection. We will start you on an antibiotic for the infection and send the urine for culture to make sure that the bacteria causing the infection is sensitive to the antibiotic prescribed. Start ciprofloxacin 1 tab twice a day for 5 days. Take Pyridium 1 tab every 8 hours for next 2 days to help with discomfort. Drink plenty of fluids. Follow up with your primary care provider in 3 days if no improvement in symptoms. Seek immediate medical attention in the emergency room if you develop fever greater than 100.5 F, have severe abdominal pain, persistent vomiting, or any worsening of symptoms. - Billing Disposition and Condition Condition: STABLE Disposition: Home
== END 2017-11-13 15:25 | disposition home or self-care (01) ==
LOC: UCEAST 13:06
DX: Z88.2 Allergy status to sulfonamides (principal); Z88.8 Allergy status to other drugs, medicaments and biological substances
CPT/HCPCS: 81003; 87077; 87086; 99212; G0463

== ENCOUNTER 2018-03-26 18:26 | Emergency (ER) | payer BC ==
--- OUTSIDE RECORDS SUMMARY | 2018-03-26 18:32 | XMS REPORT | Continuity of Care Document ---
:[address] [facility] Address [address] [place], [place] [id number] Phone Care Team Providers Name Role Phone Sandra Hernandez NP Unavailable Unavailable Allergies, Adverse Reactions, Alerts Substance Reaction Status latex Itching Active Sulfa (Sulfonamide Antibiotics) Nausea / Vomiting Active shellfish derived Anaphylaxis Active methenamine urinary pain Active Medications Medication Instructions Dosage Effective Dates Status Comments (start - stop) NuvaRing 0.12 mg -0.015 - Active mg/24 hr vaginal VALACYCLOVIR (unknown Not Available - Active strength) ALBUTEROL INHALER Not Available - Active (unknown strength) EPIPEN (unknown Not Available - Active strength) Problems Condition Effective Dates (start - Clinical Status Comments stop) Human immunodeficiency virus [HIV] - counseling Encounter for screening for human - immunodeficiency virus Encntr screen for infections w sexl mode of transmiss Herpesviral infection of urogenital system, unspecified Encounter for surveillance of vagnl ring Body mass index (BMI) 22.0-22.9, adult Encounter for oth screening for malignant neoplasm of breast Encntr for velvet weaver exam (general) (routine) w/o abn findings Encounter for surveillance of vagnl ring Family history of malignant neoplasm of breast Encounter for oth general cnsl and - advice on contraception Encounter for oth general cnsl and advice on contraception Encounter for initial prescription of vagnl ring Irregular menstruation, unspecified Human immunodeficiency virus [HIV] - counseling Encounter for oth general cnsl and advice on contraception Gender identity disorder, unspecified Herpes, Genital Procedures Procedure Date PREVENTIVE COUNSELING, 8-14 Minutes HIV-1/HIV-2, SINGLE ASSAY CHYLMD DNA, AMP PROBE N.GONORRHOEAE, DNA, AMP PROB Syphilis OFFICE/OUTPATIENT VISIT, EST OTHER Medical Services Contraceptive Classroom Teacher.Svc. Other Classroom Teacher.Svc. STI Results Test Name Date and Time Measure Units Reference Range Abnormal Flag Status Comments No information NOTE: This patient has pending results not included in this document. Advance Directives Directive Yes / No Effective Date File Name No information Encounters Encounter Practice Location Reason(s) Diagnoses Date Provider Providers Description For Visit Copied on Encounter PREVENTIVE [facility] STI Human David Referring COUNSELING, [facility] [place] without immunodeficiency Sandra. 620 Provider: 8-14 Minutes Southern exam (F) virus [HIV] [address], Sandra Finger (chief counselingEncoun [place], [place], Marcie Hoyt, [place] complaint) [place] [id number], [place]. [address] screening for tel:[phone], [address], [place], human [address] [place], [place], [place], [address]. [id number], virusEncntr tel:[phone] [place] screen for [id number] tel:[phone] infections w [id number] sexl mode of transmissHerpesv iral infection of urogenital system, unspecifiedEncou nter for surveillance of vagnl ring [facility] Body mass index Jennifer Referring Parenthood [place] (BMI) 22.0-22.9, Sueane. 620 Provider: Southern adultEncounter [address], Sueane Finger for oth [place], [place], Marcie Rodriguez, 620 [place] [id number]. [address] malignant tel:[phone], [place], [place], [place] [address] [place], [address]. [id number], velvet weaver exam tel:[phone] [place] (general) [id number] tel:[phone] (routine) w/o [id number] abn findingsEncounte r for surveillance of vagnl ringFamily history of malignant neoplasm of breastEncounter for oth general cnsl and advice on contraception [facility] En[facility] for [facility] Referring [facility] [place] ot general cnsl 2-201 Sueane. 620 Provider: James and advice on [address], Sueane Finger contraceptionEnc [place], [place], Jennifer [facility], [address] [place] [phone]. [address] initial tel:[phone], [place], [place], [place] [address] [place], [place], [place], [address]. [id number], ringIrregular tel:[phone] [place] menstruation, [id number] tel:[phone] unspecified [id number] [facility] Human Nov- Raphaelgiles Referring Parenthood [place] immunodeficiency 6 Delia. [address] W Provider: James virus [HIV] [address], Delia Finger counselingEncoun [place], Raphella [facility], [address] [place] [address]. s, [address] general cnsl and tel:[phone], [place], [place] [address] [place], [place], [place], [address]. [id number], hellen identity tel:[phone] [place] disorder, [id number] tel:[phone] unspecified [id number] [facility] Herpes, Genital Sep-2 [facility] [place] 8 Justine. [address] [place] [address], Finger [place], [place], [facility], [address] [address] tel:[phone] St, [place], [address] [place], [id number], [place] tel:[phone] Family History Family Member Diagnosis Age At Onset Father Colon Cancer 58 Mother Dyslipidemia Maternal grandmother Cancer, breast Father Alive and well Family history of Cancer, breast Immunizations Vaccine Date Status Comments No information Payers Payer name Insurance type Covered alliance party ID Authorization(s) [facility] [id number] Social History Type Description Quantity Date Captured Comments Alcohol Use Details Unknown Caffeine Use Details Unknown Tobacco Use Status Current non-smoker Smoking Status Never smoker Non-Smoking Tobacco : No Details Available : No Details Available 2018 Use Details Sex Female Vital Signs Date / Height Weight BMI Pulse Blood Temperature Respiratory Body Head BMI Pulse Inhaled Time: Rate Pressure Rate Surface Circumference percentile Ox Ox Area No information Chief Complaint And Reason For Visit Most recent encounter only, dated '03/02/2018 08:50'. STI without exam (F ) (chief complaint) Reason For Referral Reason For Referral No information Plan Of Treatment Date Type Action Status No information History Of Present Illness Encounter Date Complaint History Of Present Illness No information Functional Status Date Functional Assessment No information Medications Administered Medication Instructions Dosage Effective Dates (start - stop) Status Comments No information Instructions Date Instruction Additional Information No information Assessments Type Assessment Date assessment Human immunodeficiency virus [HIV] counseling assessment Encounter for screening for human immunodeficiency virus 2018 assessment Encntr screen for infections w sexl mode of transmiss impression Patient is aware that if GC/CT/syphilis tests are positive she Feb will receive a phone call and need to RTC for treatment. assessment Herpesviral infection of urogenital system, unspecified 2018 assessment Encounter for surveillance of vagnl ring Goals Health Concern Goal Type Priority Status Date No information Medical Equipment Description Device [place] Device Identifier Effective Dates (start - stop ) Status No information Mental Status Date Cognitive Assessment Normal Orientation Health Concerns Observation Date No information Concern Status Date No information
--- OUTSIDE RECORDS SUMMARY | 2018-03-26 18:32 | XMS REPORT | Continuity of Care Document ---
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 Tobacco Use Start: Unknown Never Smoked Cigarettes ETOH Use Social Alcohol Exercise Type/Frequency Exercises sporadically Allergies, Adverse Reactions, Alerts Date Description Reaction Status Severity Comments 07/08/2017 Sulfa Active 07/08/2017 Methenamine URINARY PAIN Active 03/22/2018 Latex Hives Active 01/15/2015 NKDA Inactive Medications Medication Date Status Form Strength Qnty SIG Indications Ordering Provider Iman 03/22/ Active Tablets 2.5mg 90tab 1-3 tabs Yury Roberts 2019 s daily as Eugene weinberg MD Epipen 2-Humza 08/27/ Active Solution 0.3mg/0.3 2unit use as Z91.013 Haley 2017 Auto-Inje ML s directed [place] ct [employer]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 Xanax 02/06/ Active Tablets 0.25mg 14tab tid prn F41.9 Yury Roberts 2016 s anxiety MD Eugene Ventolin HFA 06/12/ Active Aerosol 108(90Bas 17uni 2 puffs J45.20 [place] 2016 e) ts qd-qid Nancy, mcg/Act 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 Valacyclovir HCL 11/25/ Active Tablets 1gm 30tab Take 1 Haley 2015 s Tablet By [place]lyn Mouth Every 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 Day as Needed Nuvaring / Active Ring 0.12-0.01 insert one Unknown 0000 5mg/24HR ring vaginally, retain x4wks for continuous cycle Focalin XR 02/17/ Hx Caps ER 10mg 30cap one po qAM F90.0 Yury Roberts 2018 - 24HR s after a Eugene 03/22/ MD kaci 2019 breakfast Xulane 12/03/ Hx Patches 150-35mcg 3unit apply one Haley 2017 - Weekly /24HR s patch to Franklyn, 02/16/ clean dry [facility] 2018 skin of buttock, abdomen, or upper arm once weekly x 3 weeks, then no patch x 1 week Nuvaring 10/20/ Hx Ring 0.12-0.01 1unit Use as Haley 2017 - 5mg/24HR s Directed Franklyn 11/04/ 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 2018 Climara Pro 10/09/ Hx Patches 0.045-0.0 4unit Apply as Z30.8 Haley 2018 - Weekly 15mg/Day s Directed [place]lyn 12/03/ 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 2018 Doxycycline 09/02/ Hx Tablets 100mg 60tab Take 1 Haley Hyclate 2018 - s Tablet By [place]lyn, 10/09/ Mouth Two 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 2018 Times Daily For 30 Days Doxycycline 07/08/ Hx Tablets 100mg 60tab 1 by mouth R53.83 Haley Hyclate 2018 - s twice a day Franklyn 08/26/ x 30d 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 2018 Advair Diskus 02/17/ Hx Aerosol 250-50mcg 60uni 1 puff J45.998 [place] 2017 - /Dose ts twice a Nancy, 03/21/ day, rinse 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 2019 after, samples Nuvaring 11/14/ Hx Ring 0.12-0.01 1unit use as Z30.8 Haley 2017 - 5mg/24HR s directed [place]lyn, 10/09/ 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 2017 Ortho Tri-Cyclen 10/08/ Hx Tablets 0.18/0.21 28tab take as Z30.8 Haley (28) 2016 - 5/0.25 s directed - Franklyn, 11/14/ mg-35 mcg may fill 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 2016 with generic Fluconazole 09/11/ Hx Tablets 150mg 7tabs 1 po x 7 B35.3 [place] 2017 - days No Nancy, 10/08/ Alcohol 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 2017 Clotrimazole/Bet 09/11/ Hx Cream 1-0.05% 30gm apply to [address] amethasone 2017 - affected Nancy, Dipropionate 02/06/ area, 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 2017 hands, once a day Macrodantin 04/14/ Hx Capsules 50mg 1 po qod Unknown 2016 - 2016 No Active 01/15/ Hx Unknown Medications 2014 - 2014 Nitrofurantoin 01/15/ Hx Capsules 100mg 28cap 1 by mouth N39.0 Haley Monohyd Macro 2015 - s twice a day Franklyn, 01/21/ x 14d 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 2015 Bactrim / Hx Tablets 400-80mg Unknown - 2016 Nuvaring / Hx Ring 0.12-0.01 1unit use as Z30.8 Haley 0000 - 5mg/24HR s directed Franklyn, 10/08/ 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 2016 Methenamine / Hx Tablets 1gm take one Unknown Hippurate 0000 - tablet by 07/08/ mouth twice 2018 a day Vitamin C / Hx Tablets 1000mg 1 by mouth Unknown 0000 - every day 2017 Macrodantin / Hx Capsules 50mg 1 by mouth Unknown 0000 - every day 2018 Medications Administered in Office Medication Date Status Form Strength Qnty SIG Indications Ordering Provider TB Intradermal Administered Injection Gisela Cespedes M.D. Immunizations CPT Code Status Date Vaccine Lot # [id number] Given 04/26/2010 Tdap Tetanus, W Pertussis 35820 Given 11/17/2009 Influenza Vac, [place], [place] [address] Given 12/30/2008 H1N1 Virus Vaccine 11415 Given 11/11/2008 Influenza Vac, [place]riv[place], [place] [address] Given 12/04/2007 Influenza Vac, Quadriv[place], [place] [address] Given 11/28/2006 Influenza Vac, [place]riv[place], [place] [address] Given 09/17/2006 Gardasil vacine typs 6,11,16,18 3 dose schedule 57657 Given 05/15/2006 Gardasil vacine typs 6,11,16,18 3 dose schedule 76088 Given 03/20/2006 Gardasil vacine typs 6,11,16,18 3 dose schedule 09766 Given 12/20/2005 Influenza [place], [place]riv[place], [place] [address] Given 02/05/2005 Meningococcal Conjugate Vaccine,Serogroups For Intramuscular Use 83028 Given 02/05/2005 Tdap Tetanus, W Pertussis 74025 Given 12/03/2004 Influenza Vac, Quadriv[place], [place] [address] Given 12/08/2003 Influenza Vac, Quadriv[place], [place] [address] Given 12/19/2002 Influenza Vac, Quadriv[place], [place] [address] Given 07/17/1997 DTaP Immunization 87567 Given 07/17/1997 MMR Virus Immunization 58956 Given 07/17/1997 (IPV) Inactive Poliovirus Vaccine 92173 Given 11/19/1994 Varicella (Chicken Pox) Immunization 38067 Given 03/10/1994 MMR Virus Immunization 49691 Given 03/10/1994 Hib PRP-T Conjugate 4 Dose Schedule 95841 Given 1993 Hepatitis B Immunization, -19 Years [address] Given 1993 (IPV) Inactive Poliovirus Vaccine 43098 Given 1993 Hib PRP-T Conjugate 4 Dose Schedule 19960 Given 1993 (IPV) Inactive Poliovirus Vaccine 81654 Given 1993 Hib PRP-T Conjugate 4 Dose Schedule 28711 Given 1993 Hepatitis B Immunization, [place]-19 Years [address]87 Given 1993 (IPV) Inactive Poliovirus Vaccine 18610 Given 1993 Hib PRP-T Conjugate 4 Dose Schedule 12392 Given 1993 Hepatitis B Immunization, [place]-19 Years Vital Signs Date Vital Result Comment 03/22/2018 8:03am BP Systolic 110 mmHg BP Diastolic 70 mmHg Heart Rate 104 /min Body Temperature 98.1 F Height 66.5 inches 5'6.50" Weight 154.00 lb BMI (Body Mass Index) 24.5 kg/m2 02/17/2018 12:50pm BP Systolic 98 mmHg BP Diastolic 60 mmHg Heart Rate 90 /min Body Temperature 97.9 F Respiratory Rate 16 /min Height 66.5 inches 5'6.50" Weight 150.25 lb BMI (Body Mass Index) 23.9 kg/m2 10/09/2017 11:31am BP Systolic 110 mmHg BP Diastolic 76 mmHg Heart Rate 92 /min Body Temperature 97.4 F Respiratory Rate 15 /min Height 66.5 inches 5'6.50" Weight 144.38 lb BMI (Body Mass Index) 23.0 kg/m2 08/27/2017 2:56pm BP Systolic 110 mmHg BP Diastolic 62 mmHg Heart Rate 86 /min Body Temperature 98.6 F Height 66.5 inches 5'6.50" Weight 149.00 lb BMI (Body Mass Index) 23.7 kg/m2 07/08/2017 2:17pm BP Systolic 104 mmHg BP Diastolic 70 mmHg Heart Rate 96 /min Body Temperature 98.6 F Height 66.5 inches 5'6.50" Weight 148.00 lb BMI (Body Mass Index) 23.5 kg/m2 02/17/2017 3:52pm BP Systolic 98 mmHg BP Diastolic 60 mmHg Heart Rate 88 /min Body Temperature 98.7 F Height 66.5 inches 5'6.50" Weight 151.50 lb BMI (Body Mass Index) 24.1 kg/m2 02/06/2017 10:21am BP Systolic 118 mmHg BP Diastolic 70 mmHg Heart Rate 84 /min Body Temperature 97.9 F Height 66.5 inches 5'6.50" Weight 145.00 lb BMI (Body Mass Index) 23.1 kg/m2 10/08/2016 9:00am BP Systolic 104 mmHg BP Diastolic 60 mmHg Heart Rate 80 /min Body Temperature 98.2 F Respiratory Rate 16 /min Height 66.5 inches 5'6.50" Weight 143.50 lb BMI (Body Mass Index) 22.8 kg/m2 09/11/2016 10:11am BP Systolic 100 mmHg BP Diastolic 62 mmHg Heart Rate 72 /min Body Temperature 98.2 F Height 66.5 inches 5'6.50" Weight 143.50 lb BMI (Body Mass Index) 22.8 kg/m2 06/12/2016 3:05pm BP Systolic 110 mmHg BP Diastolic 66 mmHg Heart Rate 96 /min Body Temperature 99.0 F Respiratory Rate 16 /min Height 66.5 inches 5'6.50" Weight 144.12 lb BMI (Body Mass Index) 22.9 kg/m2 11/16/2015 9:14am BP Systolic 118 mmHg BP Diastolic 60 mmHg Heart Rate 80 /min Body Temperature 98.6 F Height 66.5 inches 5'6.50" Weight 137.00 lb BMI (Body Mass Index) 21.8 kg/m2 01/15/2015 1:02pm BP Systolic 110 mmHg BP Diastolic 70 mmHg Heart Rate 76 /min Body Temperature 98.2 F Respiratory Rate 18 /min Height 66.5 inches 5'6.50" Weight 141.00 lb BMI (Body Mass Index) 22.4 kg/m2 Results Test Date Facility Test Result H/L Range Note Urine Culture And 11/13/2017 [facility] [place] SEE RESULT 1, 2 Sensitivities BELOW Poc Urinalysis 11/13/2017 [facility] [place] Glucose, Trace Abnormal Negative Urine Poc Bilirubin, Urine Negative Negative Poc Ketone, Urine Trace Abnormal Negative Poc Specific [place], Urine 1.020 N 1.010-1.030 Poc Blood, Urine Trace-lysed Abnormal Negative Poc pH, Urine 5.0 N 5-9 Poc Protein, Urine 1+ Abnormal Negative Poc Urobilinogen, Urine 1.0 Negative Poc Nitrite, Urine Positive Abnormal Negative Poc Leukocytes, Urine 1+ Abnormal Negative Poc Color, Urine [place] 3 Poc Clarity, Urine Clear 4 Urine Culture And 10/11/2017 [facility] [place] SEE RESULT 5, 6 Sensitivities BELOW Laboratory test 04/21/2017 [facility] (a) TSH 0.58 mIU/L 0.50-6 finding .00 Ferritin 17 ng/mL 6-115 CBC Electronic a 04/21/2017 [facility] (a) WBC 6.1 x10^3/UL 4.0- 10.0 RBC 4.60 x10^6/UL 3.93-6.00 HGB 12.6 g/dL 12.0-17.0 HCT 38 % 35-50 MCV 83.5 fL 80.0-95.0 MCH 27.4 pg 25.6-32.2 MCHC 32.8 g/dL 32.2-36.0 RDW-CV 11.8 % 11.6-14.4 PLT 198 x10^3/UL 163-400 MPV 10.9 fL 9.4-12.4 Amadeo# 2.88 x10^3/UL 1.56-6.13 Lymph# 2.55 x10^3/UL 1.18-3.74 Faulk# 0.31 x10^3/UL 0.24-0.82 Eos # 0.3 x10^3/UL 0.0-0.5 Baso # 0.04 x10^3/UL 0.01-0.08 Amadeo% 47.1 % 34.0-70.0 Lymph % 41.7 % 20.0-52.0 Faulk% 5.1 % 5.0-12.0 Eos% 5.4 % 0.7-7.0 Baso% 0.7 % 0.1-1.2 Comprehensive Metabolic 04/21/2017 [facility] ([facility]) Sodium 144 mEq/L 134-149 Prof Potassium 4.4 mEq/L 3.6-5.5 Chloride 106 mEq/L 94-112 Carbon Dioxide 23 mEq/L 21-32 Glucose 104 mg/dL 70-105 BUN 12 mg/dL 6-26 Creatinine 0.9 mg/dL 0.6-1.4 BUN/Creat Ratio 13.3 CALC 8.0-36.0 Calcium 9.8 mg/dL 8.6-10.2 Total Protein 7.2 g/dL 6.4-8.3 Albumin 4.5 g/dL 3.8-5.5 Globulin 2.7 g/dL 2.0-4.8 A/G Ratio 1.7 CALC 0.6-2.3 Alk. Phosphatase 68 U/L 30-110 Alt (SGPT) 25 U/L 7-35 Ast (Sgot) 28 U/L 5-34 Total Bilirubin 0.4 mg/dL 0.2-1.3 GFR Non- >60 ml/min/1.73m^ >=60 GFR >60 ml/min/1.73m^ >=60 Laboratory test 01/06/2017 [facility] [place] And SEE RESULT 7, 8 finding Sensitivities BELOW Poc Urinalysis 01/06/2017 [facility] Poc Glucose, Urine Negative Negative Poc Bilirubin, Urine Negative Negative Poc Ketone, Urine Negative Negative Poc Specific [place], Urine 1.020 N 1.010-1.030 Poc Blood, Urine Trace-intact Abnormal Negative Poc pH, Urine 6.0 N 5-9 Poc Protein, Urine Negative Negative Poc Urobilinogen, Urine 0.2 Negative Poc Nitrite, Urine Negative Negative Poc Leukocytes, Urine 1+ Abnormal Negative Poc Color, Urine Yellow Poc Clarity, Urine Slightly Cloudy 9 Laboratory test 10/13/2016 [facility] [place]rine Culture And SEE RESULT 10, 11 finding Sensitivities BELOW Laboratory test 08/31/2016 [facility] [place]oc , Urine Negative N Negative 12 finding Poc Urinalysis 08/31/2016 [facility] Poc Glucose, Urine Negative N Negative Poc Bilirubin, Urine Negative N Negative Poc Ketone, Urine Negative N Negative Poc Specific [place], Urine 1.020 N 1.010-1.030 Poc Blood, Urine Trace-intact Abnormal Negative Poc pH, Urine 5.5 N 5-9 Poc Protein, Urine Negative N Negative Poc Urobilinogen, Urine 0.2 N Negative Poc Nitrite, Urine Negative N Negative Poc Leukocytes, Urine 1+ Abnormal Negative Poc Color, Urine Yellow N Poc Clarity, Urine Cloudy N 13 Urinalysis Profile 08/31/2016 [facility] Urine Color Yellow N 14 Urine Appearance Cloudy N Urine Specific [place] 1.015 N 1.010-1.030 Urine pH 5.0 N 5-9 Urine Urobilinogen Negative N Negative Urine Ketones Negative N Negative Urine Protein Negative N Negative Urine Leukocytes 2+ Abnormal Negative Urine Blood Negative N Negative Urine Nitrite Negative N Negative Urine Bilirubin Negative N Negative Urine Glucose Negative N Negative Urine White Blood Cell 3+(>20/hpf) Abnormal Absent Urine Red Blood Cell Absent N Absent Urine Bacteria Absent N Absent Urine Squamous Epithelial Cell Present Abnormal Absent Laboratory test 08/31/2016 [facility] [place]rine Culture And SEE RESULT 15 finding Sensitivities BELOW Laboratory test 08/14/2016 [facility] Poc , Urine Negative N Negative 16 finding Laboratory test 07/13/2016 [facility] Urine Culture And SEE RESULT 17, 18 finding Sensitivities BELOW Laboratory test 06/06/2015 [facility] Urine Negative N Negative 19 finding 1 [id number] 2 SEE RESULT BELOW Name: GWENDOLYN AGOSTO : [address]: Mohit Barney MD Acct: [id number] Unit: [id number] AGE: 22 Location: [facility] Re11/13/17 SEX: F Status: DEP ER SPEC: [id number] ISABELLA: 11/13/17-[address] [facility] [address]: Nasima Couch MD REQ: [id number] RECD: 11/13/17 STATUS: CELIO MACIEL DR: [facility] Yury Knight MD _ SOURCE: URINE SPDESC: ORDERED: Urine Culture COMMENTS: [id number] Procedure Result Reported Site Urine Culture Final 11/14/17- 1157 ML Organism 1 STREP GROUP B Leroy Count 75-100,000 (Many) CFU/ML Susceptibility testing of penicillins and other B-lactams approved by FDA for treatment of Streptococcus pyogenes (Group A Strep) and Streptococcus agalactiae (Group B Strep) is not necessary for clinical purposes and need not be done routinely, since as with vancomycin, resistant strains have not been recognized. (CLSI X425-X13;p.66) Positive isolates will be saved for one week. Please call the Microbiology Laboratory if further susceptibility testing is needed. * ML - Main Lab . END OF REPORT DEPARTMENT OF PATHOLOGY, [address] [place] [address] Pascual Judd M.D. Director [facility] # [id number] 3 Substances that cause abnormal urine color (phenazopyridine, nitrofurantoin, or riboflavin) may cause false positive results. If contamination is suspected, it is recommended that a urine sample be resubmitted to the Laboratory for testing. 4 Protective Signal Installer: [id number] 6 SEE RESULT BELOW Name: GWENDOLYN AGOSTO : [address]: Wqaar Evans MD Acct: [id number] Unit: [id number] AGE: 22 Location: [facility] Re10/11/17 SEX: F Status: DEP ER SPEC: [id number] ISABELLA: 10/11/17-[address] [facility] [address]: Ciro LONDON REQ: [id number] RECD: 10/11/17 STATUS: CELIO MACIEL DR: [facility] Yury Knight MD _ SOURCE: URINE SPDESC: ORDERED: Urine Culture COMMENTS: [id number] Procedure Result Reported Site Urine Culture Final 10/13/17- 821 ML Organism 1 ESCHERICHIA COLI Leroy Count >100,000 (Many) CFU/ML 1. ESCHERICHIA COLI M.I.C. RX --------- ------ Ampicillin 16 I Cefazolin <=4 S Cefepime <=1 S Ceftriaxone <=1 S Ciprofloxacin <=0.25 S Gentamicin <=1 S Levofloxacin <=0.12 S Meropenem <=0.25 S Nitrofurantoin 32 S Tetracycline 2 S Pipercillin/Tazobactam <=4 S Trimethoprim/Sulfamethoxazole <=20 S Amoxicillin/Clavulanic Acid 4 S Aztreonam <=1 S Contact the Microbiology Department for any additional antibiotic reporting. * ML - Main Lab . END OF REPORT DEPARTMENT OF PATHOLOGY, [address] [place] [address] Pascual Judd M.D. Director [facility] # [id number] 7 [id number] 8 SEE RESULT BELOW Name: GWENDOLYN AGOSTO : [address]: Esmer Bray MD Acct: [id number] Unit: [id number] AGE: 22 Location: [facility] Re01/06/17 SEX: F Status: DEP ER SPEC: [id number] ISABELLA: 01/06/17-[address]: Hannah Galeano NP REQ: [id number] RECD: 01/07/17 STATUS: CELIO MACIEL DR: Haley Bray MD _ SOURCE: URINE SPDESC: ORDERED: Urine Culture COMMENTS: [id number] Procedure Result Reported Site Urine Culture Final 01/08/17- 926 ML No growth of clinically significant organisms * ML - MAIN LAB ([facility]) . END OF REPORT * ML=Testing performed at Main Lab DEPARTMENT OF PATHOLOGY, [address] [place] [address] Pascual Judd M.D. Director [facility] # [id number] 9 Protective Signal Installer: [id number] 11 SEE RESULT BELOW Name: GWENDOLYN AGOSTO : [address]: Esmer Bray MD Acct: [id number] Unit: [id number] AGE: 21 Location: [facility] Re10/13/16 SEX: F Status: DEP ER SPEC: [id number] ISABELLA: 10/13/16-[address] [facility] [address]: Esmer Bray MD REQ: [id number] RECD: 10/14/16-1037 STATUS: CELIO HENNING DR: Haley Estes [employer] _ SOURCE: URINE SPDESC: ORDERED: Urine Culture COMMENTS: [id number] Procedure Result Reported Site Urine Culture Final 10/16/16- 0805 ML Organism 1 STAPHYLOCOCCUS EPIDERMIDIS Leroy Count >100,000 (Many) CFU/ML No growth of clinically significant organisms 1. STAPHYLOCOCCUS EPIDERMIDIS M.I.C. RX --------- ------ Penicillin >=0.5 R Gentamicin <=0.5 S Linezolid 2 S Nitrofurantoin <=16 S Oxacillin >=4 R * Quinupristin/Dalfopristin <=0.25 S Rifampin <=0.5 S Tetracycline 2 S Doxycycline - Deduced S * Minocycline - Deduced S Tigecycline 0.25 S Vancomycin 1 S Imipenem-Deduced R * Ampicillin/Sulbactam-Deduced R Cefazolin-Deduced R CONTINUED ON NEXT PAGE * ML=Testing performed at Main Lab DEPARTMENT OF PATHOLOGY, [address] [place] [address] Pascual Judd M.D. Director [facility] # [id number] Patient: GWENDOLYN AGOSTO [id number] (Continued) Specimen: [id number] Collected: 10/13/16-1804 Received: 10/14/16-1038 (Continued) Procedure Result Reported Site Urine Culture Final (continued) * These antibiotics are not available in the [facility] Formulary Contact the Microbiology Department for any additional antibiotic reporting. * ML - MAIN LAB ([facility]) . END OF REPORT * ML=Testing performed at Main Lab DEPARTMENT OF PATHOLOGY, [address] [place] [address] Pascual Judd M.D. Director [facility] # [id number] Protective Signal Installer: [id number] If is still suspected, please repeat test after 48 to 72 hours. 13 Protective Signal Installer: [id number] 15 SEE RESULT BELOW Name: GWENDOLYN AGOSTO : [address]: Waqar Evans MD Acct: [id number] Unit: [id number] AGE: 21 Location: [facility] Re08/31/16 SEX: F Status: DEP ER SPEC: [id number] ISABELLA: 08/31/16-[address] [facility] [address]: Waqar Evans MD REQ: [id number] RECD: 09/01/16115 STATUS: CELIO MACIEL DR: Haley Estes [employer] _ SOURCE: URINE SPDESC: ORDERED: Urine Culture COMMENTS: [id number] Procedure Result Reported Site Urine Culture Final 09/03/16- 0829 ML Organism 1 STAPHYLOCOCCUS EPIDERMIDIS Leroy Count >100,000 (Many) CFU/ML 1. STAPHYLOCOCCUS EPIDERMIDIS M.I.C. RX --------- ------ Penicillin >=0.5 R Gentamicin <=0.5 S Linezolid 2 S Nitrofurantoin <=16 S Oxacillin >=4 R * Quinupristin/Dalfopristin <=0.25 S Rifampin <=0.5 S Tetracycline >=16 R Tigecycline 0.5 S Vancomycin 2 S Imipenem-Deduced R * Ampicillin/Sulbactam-Deduced R Cefazolin-Deduced R * These antibiotics are not available in the [facility] Formulary Contact the Microbiology Department for any additional antibiotic reporting. * ML - MAIN LAB ([facility]) . END OF REPORT * ML=Testing performed at Main Lab DEPARTMENT OF PATHOLOGY, [address] [place] [address] Pascual Judd M.D. Director [facility] # [id number] 16 Protective Signal Installer: [id number] If is still suspected, please repeat test after 48 to 72 hours. 17 [id number] 18 SEE RESULT BELOW Name: GWENDOLYN AGOSTO : [address]: Melodie Isaac Acct: [id number] Unit: [id number] AGE: 21 Location: [facility] Re07/13/16 SEX: F Status: DEP ER SPEC: [id number] ISABELLA: 07/13/16-[address] [facility] [address]: Melodie Carter DO REQ: [id number] RECD: 07/13/160014 STATUS: CELIO MACIEL DR: Haley Estes [employer] _ SOURCE: URINE SPDESC: ORDERED: Urine Culture COMMENTS: [id number] Procedure Result Reported Site Urine Culture Final 07/15/16- 0902 ML Organism 1 ESCHERICHIA COLI Leroy Count >100,000 (Many) CFU/ML 1. ESCHERICHIA COLI M.I.C. RX --------- ------ Ampicillin <=2 S Cefazolin <=4 S Cefepime <=1 S Ceftriaxone <=1 S Ciprofloxacin <=0.25 S Gentamicin <=1 S Levofloxacin <=0.12 S Meropenem <=0.25 S Nitrofurantoin <=16 S Tetracycline <=1 S Pipercillin/Tazobactam <=4 S Trimethoprim/Sulfamethoxazole <=20 S Amoxicillin/Clavulanic Acid <=2 S Aztreonam <=1 S Contact the Microbiology Department for any additional antibiotic reporting. * ML - MAIN LAB ([facility]) . END OF REPORT * ML=Testing performed at Main Lab DEPARTMENT OF PATHOLOGY, [address] [place] [address] Pascual Judd M.D. Director [facility] # [id number] 19 If is still suspected, please repeat test after 48 to 72 hours. This test detects intact HCG only and is indicated for the early detection of . 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, predom inattentive type Z87.440 Personal history of urinary (tract) infections Office Visit 10/09/2017 Main Office Haley Estes Z30.8 Encounter for other 11:15a 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 contraceptive management Office Visit 08/27/2017 Cami Estes Z91.013 Allergy to seafood 3:00p Office 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 Office Visit 07/08/2017 Main Office Haley Estes R53.83 Other fatigue 2:15p 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 Office Visit 02/17/2017 Main Office [place] R05 Cough 3:30p Nancy, 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 J45.998 Other asthma Office Visit 02/06/2017 10:10a Main Office Yury Roberts 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 F41.9 Anxiety disorder, unspecified Office Visit 10/08/2016 9:00a Main Office Haley Estes Z30.8 Encounter for other 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 contraceptive management 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 09/11/2016 Main Office [place] B35.3 Tinea pedis 10:00a 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, 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 Office Visit 06/12/2016 Cami Estes J45.20 Mild intermittent 3:00p Office 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 asthma, uncomplicated Z30.8 Encounter for other contraceptive management Office Visit 04/03/2016 1:15p Main Office Gisela Cespedes Z11.1 Encounter for M.DVivien screening for respiratory tuberculosis Office Visit 11/16/2015 9:15a Main Office Haley Estes R23.8 Other skin changes 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 Office Visit 01/15/2015 1:00p Main Office Haley Franklyn, N39.0 Urinary tract 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 infection, site not specified Z30.8 Encounter for other contraceptive management Plan of Treatment Future Appointment(s):04/19/2018 8:00 am - Yury Knight MD at [facility] [id number]/22/2018 - Yury Knight MDF90.0 Attention-deficit hyperactivity disorder, predominantly inattentive typeFollow up:one monthAllNew Medication:Focalin 2.5 mg - 1-3 tabs daily as directed.Comments:~B_~U_ Medication Management~b_~u_ Patient Understands medications she's taking? Yes No Are there Barriers to Adherence? Yes No Has the patient been asked about herbal supplements and therapies, and OTC meds? Yes No
--- NOTE | 2018-03-26 18:39 | UC ---
Complaint Female HPI - HPI Summary HPI Summary: 23 yo female presents with urinary burning and frequency. 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 Over the last week she has had dysuria. She was out of town and went to an urgent care with these symptoms. She tells me that her urine was positive for infection and she was treated with cipro for 3 days. Historically, 3 days of anbx does not work for her UTIs given their chronicity. She took the cipro for 3 days and had slight improvement of her symptoms, but never resolved and now her symptoms are back as they were before anbx. She has seen urology in the past for this issue. Most recently was referred to Dr. Prieto ([place]) and has an appt to see him on 03/31. Denies fever, abdominal pain, n/v, flank pain. - History Of Current Complaint Stated Complaint: BURNING URINATION Time Seen by Provider: 03/26/18 18:39 Hx Obtained From: Patient Hx Last Menstrual Period: 10/18/17 Onset/Duration: Sudden Onset Severity Initially: Moderate Severity Currently: Moderate Pain Intensity: 5 Pain Scale Used: 0-10 Numeric - Allergies/Home Medications Allergies/Adverse Reactions: Allergies Allergy/AdvReac Type Severity Reaction Status Date / Time latex Allergy Hives Verified 03/26/18 18:41 Sulfa (Sulfonamide Allergy GI Upset Verified 03/26/18 18:41 Antibiotics) SEAFOOD Allergy Severe Anaphylatic Uncoded 03/26/18 18:41 Shock gluten Allergy celiac's Uncoded 03/26/18 18:41 methanamine Allergy See Comment Uncoded 03/26/18 18:41 Home Medications: Home Medications EPINEPHrine [Epipen 2-Humza] PRN 03/26/18 [History] Etonogest/Eth.estradiol (Nf) [Nuvaring Vaginal Ring] 1 each VAGINAL .SEE COMMENTS 03/26/18 [History Confirmed 03/26/18] PMH/Surg Hx/FS Hx/Imm Hx - Additional Past Medical History Additional PMH: Chronic UTIs - Surgical History Surgical History: Yes Surgery Procedure, Year, and Place: URETER REIMPLANTATION- [facility]- 1992. 2005-RESHAPING OF THE URETER OPENING-[facility]. urethral dialation at [facility] [place] - Family History Known Family History: Positive: Other - breast CA, pancreatic CA, colon CA Negative: Cardiac Disease, Hypertension, Diabetes - Social History Occupation: Employed Full-time Lives: With Family Alcohol Use: None Substance Use Type: None Smoking Status (MU): Never Smoked Tobacco Review of Systems All Other Systems Reviewed And Are Negative: Yes Constitutional: Positive: Negative Skin: Positive: Negative Respiratory: Positive: Negative Cardiovascular: Positive: Negative Gastrointestinal: Positive: Negative Genitourinary: Positive: Dysuria, Frequency, Urgency Neurovascular: Positive: Negative Neurological: Positive: Negative Psychological: Positive: Negative Physical Exam - Summary Physical Exam Summary: GENERAL: NAD. WDWN. No pain distress. SKIN: No rashes, sores, lesions, or open wounds. NECK: Supple. Nontender. No lymphadenopathy. CHEST: CTAB. No r/r/w. No accessory muscle use. Breathing comfortably and in no distress. CV: RRR. Without m/r/g. Pulses intact. Cap refill <2seconds ABDOMEN: Soft. NTTP. No distention or guarding. No CVA tenderness. Bowel sounds present NEURO: Alert. PSYCH: Age appropriate behavior. Triage Information Reviewed: Yes Vital Signs: Vital Signs: Temp Pulse Resp BP Pulse Ox 99.1 F 67 16 115/70 100 03/26/18 18:36 03/26/18 18:36 03/26/18 18:36 03/26/18 18:36 03/26/18 18:36 Laboratory Tests 03/26/18 18:52 POC Urine Color Light yellow POC Urine Clarity Slightly cloudy POC Urine pH 7.0 POC Ur Specif [place] 1.010 POC Urine Protein 1+ A POC Ur Glucose (UA) Negative POC Urine Ketones Negative POC Urine Blood Trace-intact A POC Urine Nitrite Positive A POC Urine Bilirubin Negative POC Urine Urobilinogen 0.2 POC U Leukocyte Esteras 3+ A Vital Signs Reviewed: Yes Complaint Female Dx - Course Course Of Treatment: UA positive. Given her recent cipro use, will treat her with Augmentin and send urine for culture. Will also test her for ureaplasma and mycoplasma given her chronic UTIs. - Differential Dx/Diagnosis Provider Diagnosis: UTI (urinary tract infection) Discharge - Sign-Out/Discharge Documenting (check all that apply): Patient Departure All imaging exams completed and their final reports reviewed: No Studies - Discharge Plan Condition: Stable Disposition: HOME Prescriptions: Amoxicillin/Clavulanate TAB* [Augmentin TAB 875*] 875 mg PO BID #14 tab Patient Education Materials: Urinary Tract Infection in Women (ED) Referrals: Yury Knight MD [Primary Care Provider] - Additional Instructions: If you develop a fever, shortness of breath, chest pain, new or worsening symptoms - please call your PCP or go to the ED. Please keep your appointment with Dr. Prieto as scheduled - Billing Disposition and Condition Condition: STABLE Disposition: Home
[2018-03-26 18:40] VITALS: BP 115/70
--- NOTE | 2018-03-28 15:48 | UC ---
- Progress Note Progress Note: 03/28/2018 Urine culture positive for E.Coli Pt Rx Augmentin which covers for it. Final sensitivity reports still pending. No change Jes Ly PA-C Course/Dx - Diagnoses Provider Diagnoses: UTI (urinary tract infection) Discharge - Sign-Out/Discharge Documenting (check all that apply): Patient Departure - D/C home All imaging exams completed and their final reports reviewed: No Studies - Discharge Plan Condition: Stable Disposition: HOME Prescriptions: Amoxicillin/Clavulanate TAB* [Augmentin TAB 875*] 875 mg PO BID #14 tab Patient Education Materials: Urinary Tract Infection in Women (ED) Referrals: Yury Knight MD [Primary Care Provider] - Additional Instructions: If you develop a fever, shortness of breath, chest pain, new or worsening symptoms - please call your PCP or go to the ED. Please keep your appointment with Dr. Prieto as scheduled - Billing Disposition and Condition Condition: STABLE Disposition: Home
[2018-03-30 12:17] LABS: Mycoplasma hominis Result Negative; Mycoplasma hominis Source URINE; Ureaplasma Source URINE; Ureaplasma parvum PCR Positive; Ureaplasma urealyticum PCR Negative
--- NOTE | 2018-03-30 15:46 | UC ---
- Progress Note Progress Note: I suspect pts UTI symptoms are due to her UTI and not Ureaplama parvum Course/Dx - Diagnoses Provider Diagnoses: UTI (urinary tract infection) Discharge - Sign-Out/Discharge Documenting (check all that apply): Post-Discharge Follow Up All imaging exams completed and their final reports reviewed: No Studies - Discharge Plan Condition: Stable Disposition: HOME Prescriptions: Amoxicillin/Clavulanate TAB* [Augmentin TAB 875*] 875 mg PO BID #14 tab Patient Education Materials: Urinary Tract Infection in Women (ED) Referrals: Yury Knight MD [Primary Care Provider] - Additional Instructions: If you develop a fever, shortness of breath, chest pain, new or worsening symptoms - please call your PCP or go to the ED. Please keep your appointment with Dr. Prieto as scheduled - Billing Disposition and Condition Condition: STABLE Disposition: Home
== END 2018-03-26 19:07 | disposition home or self-care (01) ==
LOC: UCEAST 18:26
DX: N39.0 Urinary tract infection, site not specified (principal); Z91.040 Latex allergy status; Z91.013 Allergy to seafood; Z88.2 Allergy status to sulfonamides; Z91.09 Other allergy status, other than to drugs and biological substances
CPT/HCPCS: 81003; 87077; 87086; 87184; 87186; 87798; 99212; G0463

== ENCOUNTER 2018-11-28 11:38 | Emergency (ER) | payer BC ==
--- OUTSIDE RECORDS SUMMARY | 2018-11-28 12:04 | XMS REPORT | Continuity of Care Document ---
:1995 External Reference #:[id number] Author Name Isiah Chaparro MD Address [address] [place] [address] Care Team Providers Name Role Phone Yury Knight MD Care Team Information Supervisor Sunglasses Unavailable Problems Active Problems Provider Date Seborrheic dermatitis of scalp Gogo Solitario RPA-C Onset: 2018 Idiopathic urticaria Gogo SVivien Solitario RPA-C Onset: 07/14/2018 Mild intermittent asthma Gogo Solitario, RPA-C Onset: 05/19/2018 Allergic rhinitis due to pollen Gogo SVivien Beckermanastacio, RPA-C Onset: 2018 Allergy to wheat Gogo SVivien Beckermcristianr, RPA-C Onset: 04/26/2018 Allergic urticaria Gogo S. Fransiscostermcristianr, RPA-C Onset: 04/26/2018 Social History Type Date Description Comments Sex Unknown Tobacco Use Start: Unknown Patient has never smoked Smoking Status Reviewed: 11/12/18 Patient has never smoked Allergies, Adverse Reactions, Alerts Active Allergies Reaction Severity Comments Date Sulfa Antibiotics 04/26/2018 Latex 04/26/2018 Methenamine 04/26/2018 Medications Active Medications SIG Qnty Indications Ordering Provider Date Zantac 150 Maximum 1 by mouth twice 60tabs L50.0 Isiah Galdamez Strength a day MD Shankar 9 150mg Tablets Singulair 10mg by mouth 30tabs L50.0 Isiah Galdamez 10mg Tablets daily at bedtime MD Shankar 9 Doxepin HCL take 1 capsule 30caps L50.1 Isiah Galdamez 25mg Capsules by mouth at MD Shankar 9 bedtime Nasonex spray 2 sprays 17gm J30.1 Isiah Galdamez 50mcg/Act Suspension in each nostril MD Shankar 9 by intranasal route once daily. Zyrtec Allergy Take one tablet 60tabs L50.0 Isiah Galdamez 10mg Tablets po bid MD Shankar 9 Dexmethylphenidate HCL Take One To Unknown 2.5mg Three Tablets By 0 Tablets Mouth Daily as Directed -- Maximum Daily Dose Of 3 Tablets Per Day Fluconazole Take One Tablet Unknown 150mg Tablets By Mouth One 0 Time. May Repeat In 3 Days as Needed Ventolin HFA Inhale 2 Puffs Unknown 108(90Base) By Mouth One To 0 mcg/Act Aerosol Four Times A Day Epipen 2-Humza Use as Directed Unknown 0.3mg/0.3ML 0 Solution Auto-Inject Valacyclovir HCL prn Unknown 1gm Tablets 0 Liletta (52 MG) Unknown 19.5mcg/Day 0 IUD Immunizations Description No Information Available Vital Signs Date Vital Result Comment 10/13/2018 2:55pm BP Systolic 118 mmHg BP Diastolic 72 mmHg Height 70 inches 5'10" Weight 148.00 lb BMI (Body Mass Index) 21.2 kg/m2 Heart Rate 71 /min Respiratory Rate 18 /min O2 % BldC Oximetry 99 % 07/14/2018 8:44am BP Systolic 94 mmHg BP Diastolic 62 mmHg Height 70 inches 5'10" Weight 154.00 lb BMI (Body Mass Index) 22.1 kg/m2 Heart Rate 76 /min Respiratory Rate 16 /min O2 % BldC Oximetry 97 % Results Description No Information Available Procedures Description No Information Available Medical Devices Description No Information Available Encounters Type Date Location Provider Dx Diagnosis Office Visit 11/12/2018 Kory Chaparro L50.0 Allergic urticaria 4:30p Office Visit 10/13/2018 Kory Chaparro L50.1 Idiopathic urticaria 3:15p Office Visit 07/14/2018 Kory Tafoya30.1 Allergic rhinitis 8:30a Fenstermacher, RPA-C due to pollen J45.20 Mild intermittent asthma, uncomplicated L50.1 Idiopathic urticaria Z91.018 Allergy to other foods L21.0 Seborrhea capitis Office Visit 05/19/2018 8:30a [place] Gogo S. Fenstermacher, L50.0 Allergic urticaria RPA-C Z91.018 Allergy to other foods J30.1 Allergic rhinitis due to pollen J45.20 Mild intermittent asthma, uncomplicated Assessments Date Code Description Provider 11/12/2018 L50.0 Allergic urticaria Isiah Chaparro MD 10/13/2018 L50.1 Idiopathic urticaria Isiah Chaparro MD 07/14/2018 J30.1 Allergic rhinitis due to pollen Gogo S. Fenstermacher, RPA -C 07/14/2018 J45.20 Mild intermittent asthma, Gogo S. Fenstermacher, RPA-C uncomplicated 07/14/2018 L50.1 Idiopathic urticaria Gogo S. Fenstermacher, RPA-C 07/14/2018 Z91.018 Allergy to other foods Gogo S. Fenstermacher, RPA-C 07/14/2018 L21.0 Seborrhea capitis Gogo S. Fenstermacher, RPA-C 05/19/2018 L50.0 Allergic urticaria Gogo S. Fenstermacher, RPA-C 05/19/2018 Z91.018 Allergy to other foods Gogo S. Fenstermacher, RPA-C 05/19/2018 J30.1 Allergic rhinitis due to pollen Gogo S. Fenstermacher, RPA -C 05/19/2018 J45.20 Mild intermittent asthma, Gogo S. Fenstermacher, RPA-C uncomplicated Plan of Treatment Future Appointment(s):12/01/2018 4:00 pm - Gogo S. Fenstermacher, RPA-C at [facility]/12/2018 - Isiah Chaparro MDL50.0 Allergic urticariaNew Medication:Zantac 150 Maximum Strength 150 mg - 1 by mouth twice a daySingulair 10 mg - 10mg by mouth daily at bedtime Functional Status Description No Information Available Mental Status Description No Information Available Referrals Description No Information Available
--- OUTSIDE RECORDS SUMMARY | 2018-11-28 12:04 | XMS REPORT | Continuity of Care Document ---
:1995 External Reference #:[id number] Author Name Akhil Munoz M.D. 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 [phone] Medicine Problems Description No Information Available Social History Type Date Description Comments Sex Unknown Tobacco Use Start: Unknown Patient has never smoked Smoking Status Reviewed: 10/13/18 Patient has never smoked Allergies, Adverse Reactions, Alerts Active Allergies Reaction Severity Comments Date Sulfa Antibiotics abd pain, cramps, vomiting 03/31/2018 Methenamine severe urinary pain 03/31/2018 Latex rash 03/31/2018 Medications Active Medications SIG Qnty Indications Ordering Provider Date Amoxicillin/Clavulanate 1 tab by mouth 30tabs Akhil Shi 05/04/2018 Potassium three times Jurgen Munoz 500-125mg Tablets per day Fluconazole one by mouth 4tabs B37.3 Matilda Collins 03/31/2018 150mg Tablets once, june TONI Raymond repeat in 3 days as needed Dexmethylphenidate HCL Take 1 To 3 Unknown 2.5mg Tablets By Tablets Mouth Daily as Directed - Maximum Daily Dose Of 3 Per Day Epipen 2-Humza Use as Unknown 0.3mg/0.3ML Directed Solution Auto-Inject Ventolin HFA Inhale 2 Puffs Unknown 108(90Base) By Mouth One mcg/Act Aerosol To Four Times A Day Desloratadine Take 1 Tablet Unknown 5mg Tablets By Mouth Every Morning Xyzal Allergy 24HR 1 by mouth Unknown 5mg Tablets every day IUD Unknown Valtrex 1 by mouth if Unknown 1gm Tablets needed Probiotic 1 by mouth Unknown Capsules twice daily Immunizations Description No Information Available Vital Signs Date Vital Result Comment 10/13/2018 9:47am Height 70 inches 5'10" Weight 145.38 lb BMI (Body Mass Index) 20.9 kg/m2 09/08/2018 2:56pm Height 70 inches 5'10" Weight 146.38 lb Heart Rate 72 /min BP Systolic Sitting 102 mmHg BP Diastolic Sitting 64 mmHg Respiratory Rate 14 /min Body Temperature 97.7 F BMI (Body Mass Index) 21.0 kg/m2 Results Test Date Facility Test Result H/L Range Note Urine Culture And 09/08/2018 [facility] Urine Culture SEE RESULT [address] [place] [address] [phone] Urinalysis Profile 09/08/2018 [facility] Urine Color Lali [address] [place] [address] [phone] Urine Appearance Clear Urine Specific [place] 1.015 Normal 1.010-1.030 Urine pH 6.0 Normal 5-9 Urine Urobilinogen Positive Abnormal Negative Urine Ketones Negative Negative Urine Protein Negative Negative Urine Leukocytes 2+ Abnormal Negative Urine Blood Negative Negative Urine Nitrite Positive Abnormal Negative Urine Bilirubin Negative Negative Urine Glucose Negative Negative Urine White Blood Cell 3+(>20/hpf) Abnormal Absent Urine Red Blood Cell 3+(>10/hpf) Abnormal Absent Urine Bacteria 1+ Abnormal Absent Urine Squamous Epithelial Cell Present Abnormal Absent 1 SEE RESULT BELOW Name: LASHON AGOSTO : [address]: Matilda Agudelo Acct: [id number] Unit: [id number] AGE: 23 Location: [facility] Re09/08/18 SEX: F Status: REG REF SPEC: [id number] ISABELLA: 09/08/18-[address]: Matilda Raymond NP REQ: [id number] RECD: 09/09/18 STATUS: COMP _ SOURCE: URINE SPDC: ORDERED: Urine Culture Urine Source: Random Procedure Result Reported Site Urine Culture Final 09/10/18- 1052 ML No Growth (<1,000 CFU/mL) * ML - Main Lab . END OF REPORT DEPARTMENT OF PATHOLOGY, [address] [place] [address] Pascual Judd M.D. Director [facility] # [id number] Procedures Description No Information Available Medical Devices Description No Information Available Encounters Type Date Location Provider Dx Diagnosis Office Visit 09/08/2018 [facility] For Matilda Collins R30.0 Dysuria 3:00p Infectious Diseases TONI Raymond Z87.440 Personal history of urinary (tract) infections N39.0 Urinary tract infection, site not specified Office Visit 07/06/2018 8:30a [facility] Akhil Shi Z87.440 Personal history For Venkata Munoz M.D. of urinary Diseases (tract) infections Office Visit 04/28/2018 8:50a [facility] Akhil Shi Z87.440 Personal history For Venkata Munoz M.D. of urinary Diseases (tract) infections Assessments Date Code Description Provider 10/13/2018 Z87.440 Personal history of urinary (tract) Akhil Munoz M.D. infections 09/08/2018 R30.0 Dysuria Matilda Raymond NP 09/08/2018 Z87.440 Personal history of urinary (tract) Matilda Raymond NP infections 09/08/2018 N39.0 Urinary tract infection, site not Matilda Raymond NP specified 07/06/2018 Z87.440 Personal history of urinary (tract) Akhil Munoz M.D. infections 04/28/2018 Z87.440 Personal history of urinary (tract) Akhil Munoz M.D. infections Plan of Treatment No Information Available Functional Status Description No Information Available Mental Status Description No Information Available Referrals Description No Information Available
--- OUTSIDE RECORDS SUMMARY | 2018-11-28 12:04 | XMS REPORT | Continuity of Care Document ---
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 Problems Active Problems Provider Date Seborrheic dermatitis of scalp Gogo Solitario RPA-C Onset: 2018 Idiopathic urticaria oGgo Solitario RPA-C Onset: 07/14/2018 Mild intermittent asthma Gogo Solitario, RPA-C Onset: 05/19/2018 Allergic rhinitis due to pollen Gogo SVivien Beckermanastacio, RPA-C Onset: 2018 Allergy to wheat Gogo SVivien Beckermcristianr, RPA-C Onset: 04/26/2018 Allergic urticaria Gogo SVivien Beckermanastacio, RPA-C Onset: 04/26/2018 Social History Type Date Description Comments Sex Unknown Tobacco Use Start: Unknown Patient has never smoked Smoking Status Reviewed: 10/13/18 Patient has never smoked Allergies, Adverse Reactions, Alerts Active Allergies Reaction Severity Comments Date Sulfa Antibiotics 04/26/2018 Latex 04/26/2018 Methenamine 04/26/2018 Medications Active Medications SIG Qnty Indications Ordering Provider Date Doxepin HCL take 1 capsule 30caps L50.1 [...] Liletta (52 MG) Unknown 19.5mcg/Day 0 IUD History Medications Desloratadine take one tablet 30tabs L50.0 Isiah Galdamez 04/26/2018 - 5mg Tablets by mouth daily MD Shankar 05/19/2018 in the morning. Levocetirizine take one tablet 30tabs L50.0 Isiah Galdamez 04/26/2018 - Dihydrochloride by mouth daily MD Shankar 05/19/2018 5mg at bedtime Tablets Immunizations Description No Information Available Vital Signs [...] O2 % BldC Oximetry 97 % Results Test Date Facility Test Result H/L Range Note Order 04/26/2018 [facility] Skin Test Food <pending > Procedures Date Code Description Status 04/26/2018 66099 Allergy Tests Percutaneous W/ Allergenic Extracts Completed 04/26/2018 40325 Allergy Tests Percutaneous W/ Allergenic Extracts Completed Medical Devices Description No Information Available Encounters Type Date Location Provider Dx Diagnosis Office Visit 10/13/2018 Kory Chaparro L50.1 Idiopathic urticaria 3:15p Office Visit 07/14/2018 K[place] S. J30.1 Allergic rhinitis 8:30a Fenstermacher, RPA-C due to pollen J45.20 Mild intermittent asthma, uncomplicated L50.1 Idiopathic urticaria Z91.018 Allergy to other foods L21.0 Seborrhea capitis Office Visit 05/19/2018 8:30a [place] Gogo S. Fenstermacher, L50.0 Allergic urticaria RPA-C Z91.018 Allergy to other foods J30.1 Allergic rhinitis due to pollen J45.20 Mild intermittent asthma, uncomplicated Office Visit 04/26/2018 8:30a [place] Gogo S. Fenstermacher, L50.0 Allergic urticaria RPA-C Z91.018 Allergy to other foods Assessments Date Code Description Provider 10/13/2018 L50.1 Idiopathic urticaria Isiah Chaparro MD 07/14/2018 J30.1 Allergic rhinitis due to pollen Gogo S. Fenstermacher, RPA -C 07/14/2018 J45.20 Mild intermittent asthma, Gogo S. Fenstermacher, RPA-C uncomplicated 07/14/2018 L50.1 Idiopathic urticaria Gogo S. Fenstermacher, RPA-C 07/14/2018 Z91.018 Allergy to other foods Gogo S. Fenstermacher, RPA-C 07/14/2018 L21.0 Seborrhea capitis Oggo S. Fenstermacher, RPA-C 05/19/2018 L50.0 Allergic urticaria Gogo S. Fenstermacher, RPA-C 05/19/2018 Z91.018 Allergy to other foods Gogo S. Fenstermacher, RPA-C 05/19/2018 J30.1 Allergic rhinitis due to pollen Gogo S. Fenstermacher, RPA -C 05/19/2018 J45.20 Mild intermittent asthma, Gogo S. Fenstermacher, RPA-C uncomplicated 04/26/2018 L50.0 Allergic urticaria Gogo S. Fenstermacher, RPA-C 04/26/2018 Z91.018 Allergy to other foods Gogo S. Fenstermacher, RPA-C 04/26/2018 L50.0 Allergic urticaria Isiah Chaparro MD 04/26/2018 Z91.018 Allergy to other foods Isiah Chaparro MD Plan of Treatment Future Appointment(s):12/01/2018 4:00 pm - PRADEEP Banerjee at [facility]/13/2018 - Isiah Chaparro MDL50.1 Idiopathic urticariaNew Medication:Doxepin HCL 25 mg - take 1 capsule by mouth at bedtime Functional Status Description No Information Available Mental Status Description No Information Available Referrals Description No Information Available
--- OUTSIDE RECORDS SUMMARY | 2018-11-28 12:04 | XMS REPORT | Continuity of Care Document ---
:1995 External Reference #:[id number] Author Name PRADEEP Banerjee (transmitted by agent of provider Michaela Melton) Address [address] [place] [address] Care Team Providers Name Role Phone Yury Knight MD Care Team Information Personalization Specialist Unavailable Problems Active Problems Provider Date Seborrheic dermatitis of scalp Gogo Solitario RPA-C Onset: 2018 Idiopathic urticaria Gogo Solitario RPA-C Onset: 07/14/2018 Mild intermittent asthma Gogo Solitario RPA-C Onset: 05/19/2018 Allergic rhinitis due to pollen Gogo Solitario RPA-C Onset: 2018 Allergy to wheat Gogo Solitario RPA-C Onset: 04/26/2018 Allergic urticaria Gogo Solitario RPA-C Onset: 04/26/2018 Social History Type Date Description Comments Sex Unknown Tobacco Use Start: Unknown Patient has never smoked Smoking Status Reviewed: 07/14/18 Patient has never smoked Allergies, Adverse Reactions, Alerts Active Allergies Reaction Severity Comments Date Sulfa Antibiotics 04/26/2018 Latex 04/26/2018 Methenamine 04/26/2018 Medications Active Medications SIG Qnty Indications Ordering Provider Date Nasonex spray 2 sprays 17gm J30.1 Isiah [...] Desloratadine take one tablet 30tabs L50.0 Isiah Escobar. 04/26/2018 - 5mg Tablets by mouth daily MD Shankar 05/19/2018 in the morning. Levocetirizine take one tablet 30tabs L50.0 Isiah A. 04/26/2018 - Dihydrochloride by mouth daily MD [...] > Procedures Date Code Description Status 04/26/2018 26903 Allergy Tests Percutaneous W/ Allergenic Extracts Completed 04/26/2018 93679 Allergy Tests Percutaneous W/ Allergenic Extracts Completed Medical Devices Description No Information Available Encounters Type Date Location Provider Dx Diagnosis Office Visit 07/14/2018 Kory [place] J30.1 Allergic rhinitis due 8:30a Fenstermacher RPA-C to pollen J45.20 Mild intermittent asthma, uncomplicated L50.1 Idiopathic urticaria Z91.018 Allergy to other foods L21.0 Seborrhea capitis Office Visit 05/19/2018 8:30a [place] Gogo S. Fenstermacher, L50.0 Allergic urticaria RPA-C Z91.018 Allergy to other foods J30.1 Allergic rhinitis due to pollen J45.20 Mild intermittent asthma, uncomplicated Office Visit 04/26/2018 8:30a [place] Gogo S. Fenstermacher, L50.0 Allergic urticaria RPA-C Z91.018 Allergy to other foods Assessments Date Code Description Provider 07/14/2018 J30.1 Allergic rhinitis due to pollen [...] foods Isiah Chaparro MD Plan of Treatment No Information Available Functional Status Description No Information Available Mental Status Description No Information Available Referrals Description No Information Available
--- OUTSIDE RECORDS SUMMARY | 2018-11-28 12:04 | XMS REPORT | Continuity of Care Document ---
:1995 External Reference #:[id number] Author Name Yury Knight MD Address [address] [place] [address] Care Team Providers Name Role Phone Yury Knight MD - Family Care Team Information Sales Order Administrator [phone] Medicine Problems Active Problems Provider Date Congenital duplication of renal collecting Gisela Cespedes M.D. Onset: 2016 system Urinary tract infectious disease Gisela Cespedes M.D. Onset: 07/15/2016 Social History Type Date Description Comments Sex Unknown Tobacco Use Start: Unknown Never Smoked Cigarettes ETOH Use Social Alcohol Exercise Type/Frequency Exercises sporadically Allergies, Adverse Reactions, Alerts Active Allergies Reaction Severity Comments Date Sulfa 07/08/2017 Methenamine URINARY PAIN 07/08/2017 Latex Hives 03/22/2018 Inactive Allergies NKDA 01/15/2015 Medications Active Medications SIG Qnty Indications Ordering Provider Date Focalin 1-3 tabs daily 90tabs Yury Roberts 03/22/2018 2.5mg Tablets as directed. MD Eugene Epipen 2-Humza use as directed 2units Z91.013 GRACE Boyce 08/27/2017 0.3mg/0.3ML Solution Auto-Inject Xanax tid prn anxiety 14tabs F41.9 Yury Roberts 02/06/2017 0.25mg Tablets MD Eugene Ventolin HFA 2 puffs qd-qid 17units J45.20 [place] 06/12/2016 GRACE Cruz 108(90Base) mcg/Act Aerosol Valacyclovir HCL Take 1 Tablet By 30tabs GRACE Boyce 11/26/2015 1gm Mouth Every Day Tablets as Needed Liletta (52 MG) Unknown 19.5mcg/Day IUD Zyrtec Allergy 1 by mouth every Unknown 10mg day, please fill Tablets with generic Medications Administered in Office Medication SIG Qnty Indications Ordering Provider Date TB Intradermal Test Gisela Cespedes M.D. 04/01/2016 Injection Immunizations CPT Code Status Date Vaccine Lot # [id number] Given 04/26/2010 Tdap Tetanus, W Pertussis 29659 Given 11/17/2009 Influenza Vac, [place], [place] [address] Given 12/30/2008 H1N1 Virus Vaccine 14727 Given 11/11/2008 Influenza Vac, Quadriv[place], [place] [address] Given 12/04/2007 Influenza Vac, Quadriv[place], [place] [address] Given 11/28/2006 Influenza Vac, Quadriv[place], [place] [address] Given 09/17/2006 Gardasil vacine typs 6,11,16,18 3 dose schedule 68673 Given 05/15/2006 Gardasil vacine typs 6,11,16,18 3 dose schedule 56021 Given 03/20/2006 Gardasil vacine typs 6,11,16,18 3 dose schedule 87365 Given 12/20/2005 Influenza Vac, Quadriv[place], [place] [address] Given 02/05/2005 Meningococcal Conjugate Vaccine,Serogroups For Intramuscular Use 81479 Given 02/05/2005 Tdap Tetanus, W Pertussis 02893 Given 12/03/2004 Influenza Vac, Quadrivalent, [place] [address] Given 12/08/2003 Influenza Vac, Quadriv[place], [place] [address] Given 12/19/2002 Influenza Vac, Quadriv[place], [place] [address] Given 07/17/1997 DTaP Immunization 28612 Given 07/17/1997 MMR Virus Immunization 12134 Given 07/17/1997 (IPV) Inactive Poliovirus Vaccine 68848 Given 11/19/1994 Varicella (Chicken Pox) Immunization 85058 Given 03/10/1994 MMR Virus Immunization 74650 Given 03/10/1994 Hib PRP-T Conjugate 4 Dose Schedule 11013 Given 1993 Hepatitis B Immunization, -19 Years 58625 Given 1993 (IPV) Inactive Poliovirus Vaccine 14282 Given 1993 Hib PRP-T Conjugate 4 Dose Schedule 82493 Given 1993 (IPV) Inactive Poliovirus Vaccine 81296 Given 1993 Hib PRP-T Conjugate 4 Dose Schedule 50139 Given 1993 Hepatitis B Immunization, [place]-19 Years 96338 Given 1993 (IPV) Inactive Poliovirus Vaccine 22137 Given 1993 Hib PRP-T Conjugate 4 Dose Schedule 93755 Given 1993 Hepatitis B Immunization, [place]-19 Years Vital Signs Date Vital Result Comment 11/04/2018 2:42pm BP Systolic 100 mmHg BP Diastolic 70 mmHg Heart Rate 82 /min Body Temperature 97.3 F Respiratory Rate 16 /min Height 66.5 inches 5'6.50" Weight 142.00 lb BMI (Body Mass Index) 22.6 kg/m2 04/19/2018 8:13am BP Systolic 100 mmHg BP Diastolic 60 mmHg Heart Rate 96 /min Body Temperature 98.8 F Respiratory Rate 16 /min Height 66.5 inches 5'6.50" Weight 157.00 lb BMI (Body Mass Index) 25.0 kg/m2 Results Description No Information Available Procedures Description No Information Available Medical Devices Description No Information Available Encounters Description No Information Available Assessments Date Code Description Provider 11/04/2018 F90.0 Attention-deficit hyperactivity disorder, Yury Knight MD predominantly inat 11/04/2018 Z87.440 Personal history of urinary (tract) Yury Knight MD infections Plan of Treatment Future Appointment(s):04/15/2019 8:40 am - Yury Knight MD at Main [facility]/04/2018 - Yury Knight MDF90.0 Attention-deficit hyperactivity disorder, predominantly inatZ87.440 Personal history of urinary ( tract) infectionsAllComments:Medication Management Patient Understands medications she's taking? Yes No Are there Barriers to Adherence? Yes No Has the patient been asked about herbal supplements and therapies, and OTC meds? Yes No Functional Status Description No Information Available Mental Status Description No Information Available Referrals Description No Information Available
[2018-11-28 12:06] VITALS: BP 114/74
--- NOTE | 2018-11-28 12:24 | UC ---
Nausea/Vomiting/Diarrhea HPI - HPI Summary HPI Summary: 6 days of diarrhea w/ no episodes of normal BMs. approx 6-10 episodes a day. nothing makes it better/worse. she felt feverish at one point. 2 room mates had GI bugs but it did not last this long. She has celiac dis and when asked what happens if she eats gluten, she reports having diarrhea but never this long. denies recent antibx use. denies blood in stool. feels very dehydrated but she is able to keep fluids down. - History of Current Complaint Chief Complaint: UCGI Stated Complaint: DIARRHEA Time Seen by Provider: 11/28/18 12:10 Hx Obtained From: Patient Hx Last Menstrual Period: IUD Pain Intensity: 0 Diarrhea Characteristics: Watery - Allergies/Home Medications Allergies/Adverse Reactions: Allergies Allergy/AdvReac Type Severity Reaction Status Date / Time latex Allergy Hives Verified 11/28/18 12:07 Sulfa (Sulfonamide Allergy GI Upset Verified 11/28/18 12:07 Antibiotics) SEAFOOD Allergy Severe Anaphylatic Uncoded 11/28/18 12:07 Shock gluten Allergy celiac's Uncoded 11/28/18 12:07 methanamine Allergy See Comment Uncoded 11/28/18 12:07 PMH/Surg Hx/FS Hx/Imm Hx - Additional Past Medical History Additional PMH: celiac dis Previously Healthy: Yes - Surgical History Surgical History: Yes Surgery Procedure, Year, and Place: URETER REIMPLANTATION- [facility]- 1992. 2005-RESHAPING OF THE URETER OPENING-[facility]. urethral dialation at [facility] - Family History Known Family History: Positive: Other - breast CA, pancreatic CA, colon CA Negative: Cardiac Disease, Hypertension, Diabetes - Social History Alcohol Use: None Substance Use Type: None Smoking Status (MU): Never Smoked Tobacco Review of Systems All Other Systems Reviewed And Are Negative: Yes Constitutional: Positive: Fever. Negative: Chills, Fatigue Skin: Negative: Rash Cardiovascular: Positive: Negative Gastrointestinal: Positive: Diarrhea. Negative: Abdominal Pain, Vomiting, Nausea Musculoskeletal: Negative: Arthralgia, Edema, Myalgia Neurological: Negative: Headache, Weakness Physical Exam Triage Information Reviewed: Yes Appearance: Well-Appearing Vital Signs: Initial Vital Signs Temp 97.9 F 11/28/18 12:03 Pulse 96 11/28/18 12:03 Resp 12 11/28/18 12:03 BP 114/74 11/28/18 12:03 Pulse Ox 100 11/28/18 12:03 Vital Signs Reviewed: Yes Respiratory Exam: Normal Cardiovascular Exam: Normal Abdomen Description: Positive: Nontender, Soft. Negative: CVA Tenderness (R), CVA Tenderness (L), Distended, Guarding Neurological: Positive: Alert Skin: Positive: Other - +dry lips. Negative: Rashes Naus/Vom/Diarrhea Course/Dx - Course Course Of Treatment: Likely viral source for diarrhea for approx 6 days. Will get stool kit to r/o other causes. she may have also ingested gluten but she denies , has celiac. vitals are good but she had very dry lips on exam and given number of daily episodes will give iv fluids; she tolerated well. if develops actual fever, blood in stool or abd pain she should go to the ED. - Differential Dx/Diagnosis Differential Diagnoses - Female: Other Provider Diagnosis: Diarrhea Condition At Discharge: Good Discharge ED - Sign-Out/Discharge Documenting (check all that apply): Patient Departure All imaging exams completed and their final reports reviewed: No Studies - Discharge Plan Condition: Good Disposition: HOME Patient Education Materials: Acute Diarrhea (ED) Referrals: Yury Knight MD [Primary Care Provider] - Additional Instructions: Please remain hydrated. If there is blood or new fever please go to the Emergency Room - Billing Disposition and Condition Condition: GOOD Disposition: Home
[2018-11-28] MEDS ORDERED: NS 0.9% 1000 ML** 1,000 ML IV ONE (12:25)
--- NOTE | 2018-12-02 16:12 | UC ---
- Progress Note Progress Note: Stool results negative for enteric pathogens, mary toxin, occult blood, and lactoferrin (stool WBC). No changes in treatment. Course/Dx - Diagnoses Provider Diagnoses: Diarrhea Discharge ED - Sign-Out/Discharge Documenting (check all that apply): Post-Discharge Follow Up All imaging exams completed and their final reports reviewed: No Studies - Discharge Plan Condition: Good Disposition: HOME Patient Education Materials: Acute Diarrhea (ED) Referrals: Yury Knight MD [Primary Care Provider] - Additional Instructions: Please remain hydrated. If there is blood or new fever please go to the Emergency Room - Billing Disposition and Condition Condition: GOOD Disposition: Home
== END 2018-11-28 14:00 | disposition home or self-care (01) ==
LOC: UCEAST 11:38
DX: R19.7 Diarrhea, unspecified (principal); R50.9 Fever, unspecified; Z88.2 Allergy status to sulfonamides; Z88.8 Allergy status to other drugs, medicaments and biological substances; Z91.040 Latex allergy status; Z91.013 Allergy to seafood
CPT/HCPCS: 82272; 83630; 87045; 87046; 87077; 87899; 96360; 99211; G0463

== ENCOUNTER 2019-04-24 08:55 | Emergency (ER) | payer BC ==
--- OUTSIDE RECORDS SUMMARY | 2019-04-24 09:00 | XMS REPORT | Continuity of Care Document ---
:1995 External Reference #:[id number] Author Name Yury Knight MD Address [address] [place] [address] Care Team Providers Name Role Phone Yury Knight MD - Family Care Team Information Wedding Planning Internship [phone] Medicine Problems Active Problems Provider Date Congenital [...] Medications Active Medications SIG Qnty Indications Ordering Date Provider Focalin 1-3 tabs daily as 90tabs Yury Roberts 03/22/2018 2.5mg Tablets directed. MD Eugene Epipen 2-Humza use as directed 2units Z91.013 Haley Estes, 08/27/2017 ENGRAVING PATTERNMAKER 0.3mg/0.3ML Solution Auto-Inject Xanax three times a day 14tabs F41.9 Yury Roberts 02/06/2017 0.25mg Tablets as needed anxiety MD Eugene Ventolin HFA 2 puffs qd-qid 17units J45.20 Yury Roberts 06/12/2016 MD Eugene 108(90Base) mcg/Act Aerosol Valacyclovir HCL Take 1 Tablet By 30tabs Haley Estes, 11/26/2015 1gm Mouth Every Day ENGRA[employer]ING PATTERN[employer]KER Tablets as Needed Liletta (52 MG) Unknown 19.5mcg/Day IUD Zyrtec Allergy 1 by mouth every Unknown 10mg day, please fill Tablets with generic Singulair 1 by mouth every Unknown 10mg Tablets day Xolair one injection Unknown once monthly History Medications Lomotil take one by mouth 20tabs A09 Hannah JimenezVivien Galeano, 12/02/2018 - 2.5-0.025mg 4 times per day NURSERY NURSE 04/15/2019 Tablets as needed for diarrhea for up to 5 days Medications Administered in Office Medication SIG Qnty Indications Ordering Provider Date TB Intradermal Test Gisela Cespedes M.D. 04/01/2016 Injection Immunizations CPT Code Status Date Vaccine Lot # [id number] Given 04/26/2010 Tdap Tetanus, W Pertussis 82693 Given 11/17/2009 Influenza Vac, Quadriv[place], [place] [address] Given 12/30/2008 H1N1 Virus Vaccine 12570 Given 11/11/2008 Influenza Vac, Quadriv[place], [place] [address] Given 12/04/2007 Influenza Vac, Quadriv[place], [place] [address] Given 11/28/2006 Influenza Vac, Quadrivalent, [place] [address] Given 09/17/2006 Gardasil vacine typs 6,11,16,18 3 dose schedule 49434 Given 05/15/2006 Gardasil vacine typs 6,11,16,18 3 dose schedule 32043 Given 03/20/2006 Gardasil vacine typs 6,11,16,18 3 dose schedule 57285 Given 12/20/2005 Influenza Vac, Quadrivalent, [place] [address] Given 02/05/2005 Meningococcal Conjugate Vaccine,Serogroups For Intramuscular Use 95437 Given 02/05/2005 Tdap Tetanus, W Pertussis 79321 Given 12/03/2004 Influenza Vac, Quadrivalent, [place] [address] Given 12/08/2003 Influenza Vac, Quadrivalent, [place] [address] Given 12/19/2002 Influenza Vac, Quadrivalent, [place] [address] Given 07/17/1997 DTaP Immunization 54094 Given 07/17/1997 MMR Virus Immunization 08364 Given 07/17/1997 IPV Inactive Poliovirus Vaccine 70552 Given 11/19/1994 Varicella (Chicken Pox) Immunization 72413 Given 03/10/1994 MMR Virus Immunization 29246 Given 03/10/1994 Hib PRP-T Conjugate 4 Dose Schedule 81425 Given 1993 Hepatitis B Immunization, [place]-19 Years [address] Given 1993 IPV Inactive Poliovirus Vaccine 60862 Given 1993 Hib PRP-T Conjugate 4 Dose Schedule 79165 Given 1993 IPV Inactive Poliovirus Vaccine 57785 Given 1993 Hib PRP-T Conjugate 4 Dose Schedule 87156 Given 1993 Hepatitis B Immunization, [place]-19 Years 71599 Given 1993 IPV Inactive Poliovirus Vaccine 59846 Given 1993 Hib PRP-T Conjugate 4 Dose Schedule 19355 Given 1993 Hepatitis B Immunization, -19 Years Vital Signs Date Vital Result Comment 04/15/2019 8:37am BP Systolic 100 mmHg BP Diastolic 68 mmHg Heart Rate 80 /min Body Temperature 99.0 F Respiratory Rate 16 /min Height 66.5 inches 5'6.50" Weight 154.00 lb BMI (Body Mass Index) 24.5 kg/m2 12/02/2018 4:56pm BP Systolic 110 mmHg BP Diastolic 64 mmHg Heart Rate 80 /min Body Temperature 98.2 F Respiratory Rate 16 /min Height 66.5 inches 5'6.50" Weight 146.00 lb BMI (Body Mass Index) 23.2 kg/m2 Results Test Acquired Date Facility Test Result H/L Range Note Stool Occult 11/28/2018 [facility] [place] Stool Occult SEE RESULT 1, 2 Blood Diag Blood, Diag BELOW 1 [id number] 2 SEE RESULT BELOW Name: LASHON AGOSTO : [address]: [place] MD Acct: [id number] Unit: [id number] AGE: 23 Location: [facility] Re11/28/18 SEX: F Status: DEP ER SPEC: [id number] ISABELLA: 11/28/[address]: Sandra LONDON REQ: [id number] RECD: 11/29/18 STATUS: CELIO MACIEL DR: North Knight MD _ SOURCE: STOOL SPDESC: ORDERED: Occult Bl, Diag, Stool Culture, Fecal Lactoferr COMMENTS: [id number] Procedure Result Reported Site Stool Culture Final 12/02/18926 ML Result No enteric pathogens isolated Testing for Salmonella, Shigella, Aeromonas, Plesiomonas, Yersinia and Campylobacter are included in a Stool Culture. Vibrio spp not routinely tested for in a stool culture. If testing is desired, please request specifically when placing test order. Sensitivities not routinely performed on stool isolates, as antibiotics may prolong the carriage rate of bacteria. Please contact the microbiology lab if sensitivities are required. Stool Specimen Description Final 11/29/181345 ML Stool Color Yellow Stool Form Nonformed Stool Consistency Liquid Shiga Toxin 1 2 Final 11/30/18- 1149 ML Organism 1 Negative Shiga Toxin 1 2 CONTINUED ON NEXT PAGE DEPARTMENT OF PATHOLOGY, [address] [place] [address] Pascual Judd M.D. Director [facility] # [id number] Specimen: [id number] Collected: 11/28/18 Received: 10/14/19-1206 (Continued) Procedure Result Reported Site Shiga Toxin 1 2 Final (continued) 11/30/18- 1148 Immunochromatographic Assay Fecal Lactoferrin (Stool WBC) Final 11/29/18- 1346 ML Fecal Lactoferrin Negative by Immunoassay TEST LIMITATIONS: Assay detects elevated levels of lactoferrin released from fecal leukocytes as a marker of intestinal inflammation. The test may not be appropriate in immunocompromised persons. Fecal samples from breast fed infants should not be used with this assay. Stool Occult Blood (1) Final 11/29/18- 1346 ML Stool Occult Blood Negative Collection Date (1) 11/28/18 * ML - Main Lab . END OF REPORT DEPARTMENT OF PATHOLOGY, [address] [place] [address] Pascual Judd M.D. Director [facility] # [id number] Procedures Description No Information Available Medical Devices Description No Information Available Encounters Type Date Location Provider Dx Diagnosis Office Visit 12/02/2018 Main Office Hannah C. A09 Infectious 5:00p TONI Galeano gastroenteritis and colitis, unspecified Office Visit 11/04/2018 Main Office Yury Roberts F90.0 Attn-defct hyperactivity 2:40p MD Eugene disorder, predom inattentive type Z87.440 Personal history of urinary (tract) infections Assessments Date Code Description Provider 04/15/2019 F90.0 Attention-deficit hyperactivity disorder, Yury Knight MD predominantly inat 04/15/2019 F41.9 Anxiety disorder, unspecified Yury Knight MD 12/02/2018 A09 Infectious gastroenteritis and colitis, Hannah Galeano NP unspecified 11/04/2018 F90.0 Attention-deficit hyperactivity disorder, Yury Knight MD predominantly inat 11/04/2018 Z87.440 Personal history of urinary (tract) Yury Knight MD infections Plan of Treatment Future Appointment(s):10/14/2019 8:00 am - Yury Knight MD at Main Defxeu5404/15/2019 - Yury Knight MDF90.0 Attention-deficit hyperactivity disorder, predominantly inatFollow up:6 moF41.9 Anxiety disorder, unspecifiedAllComments:Medication Management Patient Understands medications she 's taking? Yes No Are there Barriers to Adherence? Yes No Has the patient been asked about herbal supplements and therapies, and OTC meds? Yes No Functional Status Description No Information Available Mental Status Description No Information Available Referrals Description No Information Available
--- OUTSIDE RECORDS SUMMARY | 2019-04-24 09:00 | XMS REPORT | Continuity of Care Document ---
:1995 External Reference #:[id number] Author Name PRADEEP Banerjee (transmitted by agent of provider Isiah Chaparro) Address [address] [place] [address] Care Team Providers Name Role Phone Yury Knight MD - Family Medicine Care Team Information Product Marketing Analyst Unavailable Problems Active Problems Provider Date Seborrheic dermatitis of scalp DRISS BanerjeeC Onset: 2018 Idiopathic urticaria DRISS BanerjeeC Onset: 07/14/2018 Mild intermittent asthma Gogo Solitario RPA-C Onset: 05/19/2018 Allergic rhinitis due to pollen DRISS BanerjeeC Onset: 2018 Allergy to wheat PRADEEP Banerjee Onset: 04/26/2018 Allergic urticaria Gogo Solitario RPA-C Onset: 04/26/2018 Social History Type Date Description Comments Sex Unknown Tobacco Use Start: Unknown Patient has never smoked Smoking Status Reviewed: 04/20/19 Patient has never smoked Allergies, Adverse Reactions, Alerts Active Allergies Reaction Severity Comments Date Sulfa Antibiotics 04/26/2018 Latex 04/26/2018 Methenamine 04/26/2018 Medications Active Medications SIG Qnty Indications Ordering Date Provider Xolair administer 300mg 2units Isiah Galdamez 12/02/19 150mg Solution Rec subcutaneously MD Shankar 19 every 4 weeks as directed Singulair 10mg by mouth daily 30tabs L50.0 Isiah Galdamez 11/13/19 10mg Tablets at bedtime MD Shankar 19 Nasonex spray 2 sprays in 17gm J30.1 Isiah Galdamez 05/20/19 50mcg/Act each nostril by MD Shankar 19 Suspension intranasal route once daily. Zyrtec Allergy Take one tablet po 60tabs L50.0 Isiah Galdamez 05/20/19 10mg Tablets bid MD Shankar 19 Dexmethylphenidate HCL Take One To Three Unknown Tablets By Mouth 00 2.5mg Tablets Daily as Directed -- Maximum Daily Dose Of 3 Tablets Per Day Ventolin HFA Inhale 2 Puffs By Unknown 108(90Base) Mouth One To Four 00 mcg/Act Aerosol Times A Day Epipen 2-Humza Use as Directed Unknown 0.3mg/0.3ML 00 Solution Auto-Inject Valacyclovir HCL prn Unknown 1gm 00 Tablets Liletta (52 MG) Unknown 19.5mcg/Day 00 IUD History Medications Zantac 150 Maximum 1 by mouth 60tabs L50.0 Isiah Galdamez 11/12/2018 - Strength twice a day MD Shankar 04/20/2019 150mg Tablets Medications Administered in Office Medication SIG Qnty Indications Ordering Provider Date Injection Omalizumab 5 MG Isiah Chaparro MD 04/20/2019 Injection Therapeutic, Prophylactic Or Isiah Chaparro MD 04/20/2019 Diagnostic Injection Subq/Im Injection Injection Omalizumab 5 MG Isiah Chaparro MD 03/23/2019 Injection Therapeutic, Prophylactic Or Isiah Chaparro MD 03/23/2019 Diagnostic Injection Subq/Im Injection Injection Omalizumab 5 MG Isiah Chaparro MD 02/23/2019 Injection Therapeutic, Prophylactic Or Isiah Chaparro MD 02/23/2019 Diagnostic Injection Subq/Im Injection Immunizations Description No Information Available Vital Signs Date Vital Result Comment 04/20/2019 10:59am BP Systolic 98 mmHg BP Diastolic 70 mmHg Height 70 inches 5'10" Weight 148.00 lb BMI (Body Mass Index) 21.2 kg/m2 Heart Rate 79 /min Respiratory Rate 16 /min Body Temperature 98.8 F O2 % BldC Oximetry 99 % 10/13/2018 2:55pm BP Systolic 118 mmHg BP Diastolic 72 mmHg Height 70 inches 5'10" Weight 148.00 lb BMI (Body Mass Index) 21.2 kg/m2 Heart Rate 71 /min Respiratory Rate 18 /min O2 % BldC Oximetry 99 % Results Description No Information Available Procedures Date Code Description Status 04/20/2019 48484 Therapeutic, Prophylactic Or Diagnostic Injection Subq/Im Completed 03/23/2019 63011 Therapeutic, Prophylactic Or Diagnostic Injection Subq/Im Completed 02/23/2019 32239 Therapeutic, Prophylactic Or Diagnostic Injection Subq/Im Completed Medical Devices Description No Information Available Encounters Type Date Location Provider Dx Diagnosis Office Visit 04/20/2019 [place] Gogo Salinas L50.1 Idiopathic urticaria 11:00a Fenstermanastacio, RPA-C Office Visit 12/01/2018 In[place] Gogo Salinas L50.1 Idiopathic urticaria 4:00p Fenstermanastacio, RPA-C Office Visit 11/12/2018 Inez Isiah Chaparro L50.0 Allergic urticaria 4:30p Assessments Date Code Description Provider 04/20/2019 L50.1 Idiopathic urticaria Gogo Solitario, RPA-C 04/20/2019 J45.909 Unspecified asthma, uncomplicated Isiah Chaparro MD 04/20/2019 J45.909 Unspecified asthma, uncomplicated Isiah Chaparro MD 03/23/2019 J45.20 Mild intermittent asthma, Isiah Chaparro MD uncomplicated 03/23/2019 J45.20 Mild intermittent asthma, Isiah Chaparro MD uncomplicated 03/23/2019 J45.909 Unspecified asthma, uncomplicated Isiah Chaparro MD 03/23/2019 J45.909 Unspecified asthma, uncomplicated Isiah Chaparro MD 02/23/2019 J45.20 Mild intermittent asthma, Isiah Chaparro MD uncomplicated 02/23/2019 J45.909 Unspecified asthma, uncomplicated Isiah Chaparro MD 02/23/2019 J45.909 Unspecified asthma, uncomplicated Isiah Chaparro MD 12/01/2018 L50.1 Idiopathic urticaria Gogo Solitario, RPA-C 11/12/2018 L50.0 Allergic urticaria Isiah Chaparro MD Plan of Treatment Future Appointment(s):05/18/2019 2:35 pm - Injection 1 at [facility]1507/22/2019 9: 30 am - Gwen King OWNER [employer]AL SURGEON at [facility]/20/2019 - Gogo Solitario, [facility]- CL50.1 Idiopathic urticariaComments:Patient with good response to Xolair. She reports less frequent hives following her second Xolair injection. Patient to receive her third injection today. I will continue Zyrtec and Singulair for now. Patient has noticed more vivid dreams since starting Xolair. Patient would like to continue anti-IgE therapy for now, but has been advised to contact the office if her dreams become bothersome.Follow up:3 months. Functional Status Description No Information Available Mental Status Description No Information Available Referrals Description No Information Available
--- NOTE | 2019-04-24 09:07 | UC ---
Complaint Female HPI - HPI Summary HPI Summary: Patient is 24 year old female , who presents today to the urgent care with urinary symptoms for past 1 week. Reports burning upon urination,discomfort, increased frequency that started 1 week ago. She has a history of chronic UTIs and has seen urology and infectious disease in the past. She has had Cipro resistant UTI . No vaginal discharge. Denies any back pain, hematuria, fever ,chills, cough chest pain or shortness of breath . No diaphoresis. Denies any abdominal pain , nausea or vomiting , diarrhea or constipation. - History Of Current Complaint Stated Complaint: UTI Time Seen by Provider: 04/24/19 09:03 Hx Obtained From: Patient Hx Last Menstrual Period: IUD ?: No - Allergies/Home Medications Allergies/Adverse Reactions: Allergies Allergy/AdvReac Type Severity Reaction Status Date / Time latex Allergy Hives Verified 04/24/19 09:08 Sulfa (Sulfonamide Allergy GI Upset Verified 04/24/19 09:08 Antibiotics) SEAFOOD Allergy Severe Anaphylatic Uncoded 04/24/19 09:08 Shock gluten Allergy celiac's Uncoded 04/24/19 09:08 methanamine Allergy See Comment Uncoded 04/24/19 09:08 Home Medications: Home Medications Acyclovir* [Zovirax 200 MG CAP*] 1,000 mg PO ONCE PRN 08/31/16 [History Confirmed 04/24/19] EPINEPHrine [Epipen 2-Humza] 1 dose SUBCUT ONCE 03/26/18 [History Confirmed ] Cetirizine* [ZyrTEC 10 MG TAB*] 10 mg PO BID 04/24/19 [History Confirmed ] Levonorgestrel (Iud) [Liletta IUD] 18.6 mcg IU DAILY 04/24/19 [History Confirmed 04/24/19] Montelukast Sodium TAB* [Singulair TAB*] 10 mg PO DAILY 04/24/19 [History Confirmed 04/24/19] Nitrofurantoin Monohyd/M-Cryst [Macrobid 100 mg Capsule] 100 mg PO BID 5 Days # 10 cap 04/24/19 [Rx] Omalizumab (NF) Syringe 150MG [XOLAIR (NF) Syringe 150MG] 150 mg SQ MONTHLY 10/05 [History Confirmed 04/24/19] PMH/Surg Hx/FS Hx/Imm Hx - Additional Past Medical History Additional PMH: Past Medical History : Asthma, chronic UTIs Past Surgical History: URETER REIMPLANTATION- [facility]-1992 2005-RESHAPING OF THE URETER OPENING-[facility] urethral dialation at Family History : Noncontributory of any kidney problems. Positive for breast cancer Social History : no alcohol, non smoker, no drug use. Previously Healthy: Yes - Surgical History Surgical History: Yes Surgery Procedure, Year, and Place: URETER REIMPLANTATION- [facility]- 1992. 2005-RESHAPING OF THE URETER OPENING-[facility]. urethral dialation at [facility] [place] - Family History Known Family History: Positive: Other - breast CA, pancreatic CA, colon CA Negative: Cardiac Disease, Hypertension, Diabetes - Social History Alcohol Use: None Substance Use Type: None Smoking Status (MU): Never Smoked Tobacco Review of Systems All Other Systems Reviewed And Are Negative: Yes Constitutional: Positive: Negative Skin: Positive: Negative Eyes: Positive: Negative ENT: Positive: Negative Respiratory: Positive: Negative Cardiovascular: Positive: Negative Gastrointestinal: Positive: Negative. Negative: Abdominal Pain Genitourinary: Positive: Dysuria, Frequency, Urgency. Negative: Hematuria, Vaginal/Penile Discharge, Vaginal/Penile Pain Motor: Positive: Negative Neurovascular: Positive: Negative Musculoskeletal: Positive: Negative Neurological/Mental Status: Positive: Negative Psychological: Positive: Negative Is Patient Immunocompromised?: No Physical Exam - Summary Physical Exam Summary: Physical Exam: Const: Appears well. No signs of apparent distress present. Alert and oriented x 3. Musculo: Walks with a normal gait. Head/Face: Atraumatic, normocephalic on inspection. Eyes: EOMI and PERRLA in both eyes. Conjunctivae clear. No discharge noted ENT: Hearing normal Respiratory: Respirations are unlabored. Lungs clear to auscultation bilaterally, no wheezing , rhonchi or rales noted . CVS: Regular rate and Rhythm, S1S2 normal , no murmurs identified. Extremities: Peripheral circulation is grossly normal. Pulses 2+ Abdomen : Soft non tender , nondistended , Bowel sounds present . No guarding , rebound tenderness or rigidity noted. Skin: No lesions or rash located on the upper extremities or on the lower extremities. Neuro: Cranial nerves II to XII intact, motor and sensory intact. DTR Intact bilaterally. Mood is normal. Affect is normal. Triage Information Reviewed: Yes Vital Signs Reviewed: Yes Complaint Female Dx - Course Course Of Treatment: During the visit today, we obtained a UA: Nitrate positive, leukocyte esterase 2+ and trace blood . Patient with UTI. History of chronic UTIs and resistance to Cipro in the past. We discussed the findings and further plan to treat with Macrobid. E prescribed to her pharmacy. Patient expressed understanding . - Differential Dx/Diagnosis Provider Diagnosis: UTI (urinary tract infection) Discharge ED - Sign-Out/Discharge Documenting (check all that apply): Patient Departure All imaging exams completed and their final reports reviewed: No Studies - Discharge Plan Condition: Stable Disposition: HOME Prescriptions: Nitrofurantoin Monohyd/M-Cryst [Macrobid 100 mg Capsule] 100 mg PO BID 5 Days # 10 cap Patient Education Materials: Urinary Tract Infection in Women (ED) Referrals: Yury Knight MD [Primary Care Provider] - If Needed Additional Instructions: Please start taking the medication as prescribed to the pharmacy . Follow up with your primary care doctor if needed Keep yourself hydrated Somebody will call you with final culture results and if antibiotic needs to be changed based on the test results. Return to Urgent care / ER if symptoms get worse. - Billing Disposition and Condition Condition: STABLE Disposition: Home
[2019-04-24 09:14] VITALS: BP 105/67
--- NOTE | 2019-04-27 22:45 | UC ---
- Progress Note Progress Note: PLEASE CALL PATIENT. URINE CULTURE POSITIVE FOR E. COLI WITH ONLY INTERMEDIATE SENSITIVITY TO NITROFURANTOIN. ADVISED PATIENT TO STOP THIS MEDICATION AND START CIPRO TWICE DAILY FOR 5 DAYS. ERX SENT TO [facility]. GIVEN SENSITIVITY REPORT AND PATIENT'S SULFA ALLERGY THIS IS THE NEXT BEST OPTION. PLEASE ADVISE PATIENT OF POSSIBILITY OF TENDINITIS/TENDON RUPTURE AND TO STOP TAKING THIS MEDICATION IF SHE DEVELOPS ANY UNEXPECTED MUSCULOSKELETAL DISCOMFORT Course/Dx - Diagnoses Provider Diagnoses: UTI (urinary tract infection) Discharge ED - Sign-Out/Discharge Documenting (check all that apply): Post-Discharge Follow Up All imaging exams completed and their final reports reviewed: No Studies - Discharge Plan Condition: Stable Disposition: HOME Prescriptions: Ciprofloxacin TAB* [Cipro 500 MG TAB*] 500 mg PO BID #10 tab Nitrofurantoin Monohyd/M-Cryst [Macrobid 100 mg Capsule] 100 mg PO BID 5 Days # 10 cap Patient Education Materials: Urinary Tract Infection in Women (ED) Referrals: Yury Knight MD [Primary Care Provider] - If Needed Additional Instructions: Please start taking the medication as prescribed to the pharmacy . Follow up with your primary care doctor if needed Keep yourself hydrated Somebody will call you with final culture results and if antibiotic needs to be changed based on the test results. Return to Urgent care / ER if symptoms get worse. - Billing Disposition and Condition Condition: STABLE Disposition: Home
== END 2019-04-24 09:42 | disposition home or self-care (01) ==
LOC: UCEAST 08:55
DX: N39.0 Urinary tract infection, site not specified (principal); J45.909 Unspecified asthma, uncomplicated; Z91.040 Latex allergy status; Z88.2 Allergy status to sulfonamides; Z91.013 Allergy to seafood; Z91.018 Allergy to other foods; Z88.8 Allergy status to other drugs, medicaments and biological substances; Z79.899 Other long term (current) drug therapy
CPT/HCPCS: 81003; 87077; 87086; 87186; 99212; G0463